=== PATIENT | male | born 1950 | race Caucasian/White ===

== ENCOUNTER → 2020-09-27 15:07 | Outpatient (BNVA) | payer MEDICARE, SELFPAY | PROVIDERS: PCP Internal Medicine; Visit Provider Internal Medicine | DX: R07.2 Precordial pain (principal); I10 Essential (primary) hypertension; E78.5 Hyperlipidemia, unspecified; R94.39 Abnormal result of other cardiovascular function study | CPT/HCPCS: 93005; 99212 ==

== ENCOUNTER 2020-11-03 06:53 | Outpatient (REF) | payer MEDICARE, SELFPAY ==
[2020-11-03 11:08] LABS: MANUAL DIFF FLAG NO
[2020-11-03 11:17] LABS: Basophils Percent Auto 0.7 % (0-2); Eosinophils Absolute Auto 0.1 X10*3/uL (0.0-0.4); Eosinophils Percent Auto 2.1 % (0-4); Hematocrit 42.6 % (42-52); Hemoglobin 14.1 g/dl (14.0-18.0); Imm Gran Abs Auto 0.02 X10*3/uL (0.00-0.03); Imm Gran Pct Auto 0.4 % (0.0-0.4); Lymphocytes Absolute Auto 1.3 X10*3/uL (1.2-4.9); Lymphocytes Percent Auto 23.5 % (20-40); Mean Corpuscular HGB Conc 33.1 g/dl (31.0-36.0); Mean Corpuscular Hemoglobin 30.2 pg (27.0-33.0); Mean Corpuscular Volume 91.2 fL (80-98); Mean Platelet Volume 10.8 fL (9.4-12.4); Monocytes Absolute Auto 0.5 X10*3/uL (0.1-1.2); Monocytes Percent Auto 8.1 % (2-11); Neutrophils Absolute Auto 3.7 X10*3/uL (2.0-8.3); Neutrophils Percent Auto 65.2 % (45-73); Platelet Count 163 X10*3/uL (160-400); Red Blood Count 4.67 X10*6/uL (4.60-5.80); Red Cell Distribution Width 12.7 % (11.0-16.0); White Blood Count 5.7 X10*3/uL (4.8-10.8)
[2020-11-03 11:29] LABS: Glucose Urine UA NEG (NEG); Leukocyte Esterase Urine NEG (NEG); Nitrite Urine NEG (NEG); Urine Blood NEG (NEG); Urine Ketones NEG (NEG); Urine Protein NEG (NEG-TRACE)
[2020-11-03 11:37] LABS: Appearance Urine CLEAR; Color Urine YELLOW
[2020-11-03 11:49] LABS: Alanine Aminotransferase 17 U/L (0-40); Albumin Level 4.2 g/dL (3.5-5.0); Alkaline Phosphatase 51 U/L (39-117); Anion Gap 13 (12-20); Aspartate Amino Transferase 20 U/L (5-37); Bilirubin Total 0.7 mg/dL (0.0-1.0); Blood Urea Nitrogen 16 mg/dL (9-16); Calcium 8.8 mg/dL (8.4-10.2); Carbon Dioxide 25 mmol/L (22-29); Chloride 101 mmol/L (96-108); Cholesterol 151 mg/dL; Estimated Glomerular Filt Rate > 60; Glucose Fasting 85 mg/dL (60-99); HDL Cholesterol 53 mg/dL; LDL Cholesterol Calculated 82 mg/dl; Potassium 3.7 mmol/L (3.3-5.1); Sodium 135 mmol/L (135-145); Total Protein 6.4 g/dL (6.5-8.0); Triglycerides 82 mg/dL
[2020-11-03 11:53] LABS: Prostate Specific Antigen 1.83 ng/mL (<0.05-4.0); Vitamin D 25-OH Total 24.6 ng/mL (>30)
== END 2020-11-03 06:54 | disposition home or self-care (01) ==
LOC: HO.HMGCLDS 06:53
PROVIDERS: PCP Internal Medicine; Visit Provider Internal Medicine
DX: Z12.5 Encounter for screening for malignant neoplasm of prostate (principal); I10 Essential (primary) hypertension; E78.00 Pure hypercholesterolemia, unspecified; E55.9 Vitamin D deficiency, unspecified
CPT/HCPCS: 36415; 80053; 80061; 81003; 82306; 84153; 85025

== ENCOUNTER → 2021-02-08 14:59 | Outpatient (BNVA) | payer MEDICARE, SELFPAY | PROVIDERS: PCP Internal Medicine; Visit Provider Internal Medicine | DX: R07.2 Precordial pain (principal); R94.39 Abnormal result of other cardiovascular function study; I10 Essential (primary) hypertension; E78.5 Hyperlipidemia, unspecified | CPT/HCPCS: 99212 ==

== ENCOUNTER 2021-02-22 10:26 | Outpatient (REF) | payer MEDICARE, SELFPAY ==
--- NOTE | ~2021-02-22 | US_ITS ---
EXAMINATION: US ABDOMEN COMPLETE CLINICAL INFORMATION: Liver lesion, left lobe. COMPARISON: None. TECHNIQUE: Real-time imaging of the abdominal viscera. FINDINGS: PANCREAS: Normal. ABDOMINAL AORTA: The proximal, mid, and distal segments are normal in caliber. INFERIOR VENA CAVA: Visualized portions are normal. LIVER: The liver is normal in size. The liver contour is normal. Parenchymal echogenicity is normal. Multiple hepatic cysts, the largest in the left lobe measuring up to 3.8 x 2.8 x 3.5 cm and the largest in the right lobe measuring up to 1.7 x 2.1 x 2.3 cm. No solid hepatic lesion identified. There is no intrahepatic biliary duct dilatation seen. GALLBLADDER: Normal. The gallbladder is physiologically distended without evidence of stones, sludge, polyps, wall thickening or pericholecystic fluid. COMMON BILE DUCT: Normal in caliber measuring 0.7 cm in diameter. RIGHT KIDNEY: Normal. No hydronephrosis. No renal calculi or focal parenchymal lesions. The kidney measures 10.5 cm in maximum dimension. LEFT KIDNEY: Mild pelvic fullness without significant hydronephrosis. No renal calculi or focal parenchymal lesions. The kidney measures 11.1 cm in maximum dimension. SPLEEN: Normal. The spleen measures 10.0 cm in maximum dimension. FREE FLUID: None. US/US abdomen complete IMPRESSION: 1. Multiple hepatic cysts measuring up to 3.8 cm. No solid hepatic parenchymal lesion or biliary ductal dilatation. 2. Mild left renal pelvic fullness without significant hydronephrosis.
== END 2021-02-22 10:27 | disposition home or self-care (01) ==
LOC: HO.HMGCX 10:26
PROVIDERS: PCP Internal Medicine; Visit Provider Internal Medicine
DX: K76.9 Liver disease, unspecified (principal)
CPT/HCPCS: 76700

== ENCOUNTER 2022-05-11 06:41 | Outpatient (REF) | payer MEDICARE, SELFPAY ==
[2022-05-11 12:05] LABS: Appearance Urine Clear; Basophils Percent Auto 0.6 % (0-2); Color Urine Yellow; Eosinophils Absolute Auto 0.1 X10*3/uL (0.0-0.4); Eosinophils Percent Auto 2.3 % (0-4); Glucose Urine UA Negative (Negative); Hematocrit 43.2 % (42.0-52.0); Hemoglobin 14.4 g/dl (14.0-18.0); Imm Gran Abs Auto 0.02 X10*3/uL (0.00-0.03); Imm Gran Pct Auto 0.4 % (0.0-0.4); Leukocyte Esterase Urine Negative (Negative); Lymphocytes Absolute Auto 1.3 X10*3/uL (1.2-4.9); Lymphocytes Percent Auto 27.7 % (20-40); MANUAL DIFF FLAG NO; Mean Corpuscular HGB Conc 33.3 g/dl (31.0-36.0); Mean Corpuscular Hemoglobin 30.1 pg (27.0-33.0); Mean Corpuscular Volume 90.2 fL (80.0-98.0); Mean Platelet Volume 10.7 fL (9.4-12.4); Monocytes Absolute Auto 0.5 X10*3/uL (0.1-1.2); Monocytes Percent Auto 10.7 % (2-11); Neutrophils Absolute Auto 2.8 x10*3/uL (2.0-8.3); Neutrophils Percent Auto 58.3 % (45-73); Nitrite Urine Negative (Negative); PH 5.5 (5.0-9.0); Platelet Count 170 X10*3/uL (160-400); Red Blood Count 4.79 X10*6/uL (4.60-5.80); Red Cell Distribution Width 12.9 % (11.0-16.0); Urine Blood Negative (Negative); Urine Ketones Negative (Negative); Urine Protein Negative (Neg-Trace); White Blood Count 4.8 X10*3/uL (4.8-10.8)
[2022-05-11 12:11] LABS: Bacteria Urine None Seen (None Seen); Hyaline Casts Urine 0-2 /LPF (0-2); RBC Urine 0-2 /HPF (0-2); Squamous Epithelial Cell Urine 0-2 /HPF (0-2); WBC Urine 0-5 /HPF (0-5)
[2022-05-11 12:39] LABS: Alanine Aminotransferase 19 U/L (0-40); Albumin Level 4.1 g/dL (3.5-5.0); Alkaline Phosphatase 55 U/L (39-117); Anion Gap 12 (12-20); Aspartate Amino Transferase 20 U/L (5-37); Bilirubin Total 0.5 mg/dL (0.0-1.0); Blood Urea Nitrogen 21 mg/dL (9-16); Carbon Dioxide 26 mmol/L (22-29); Chloride 107 mmol/L (96-108); Cholesterol 161 mg/dL; Estimated Glomerular Filt Rate > 60; Glucose Fasting 92 mg/dL (60-99); HDL Cholesterol 52 mg/dL; LDL Cholesterol Calculated 93 mg/dl; Potassium 3.9 mmol/L (3.3-5.1); Sodium 141 mmol/L (135-145); Total Protein 6.1 g/dL (6.5-8.0); Triglycerides 81 mg/dL
[2022-05-11 12:52] LABS: PSA,Total (Free>4and<10) 1.83 ng/mL (0.00-4.00); Thyroid Stimulating Hormone 1.93 uIU/mL (0.32-4.0); Vitamin D 25-OH Total 27.1 ng/mL (>30)
== END 2022-05-11 06:42 | disposition home or self-care (01) ==
LOC: HO.HMGCLDS 06:41
PROVIDERS: PCP Internal Medicine; Visit Provider Internal Medicine
DX: Z12.5 Encounter for screening for malignant neoplasm of prostate (principal); I10 Essential (primary) hypertension; E78.00 Pure hypercholesterolemia, unspecified; E55.9 Vitamin D deficiency, unspecified; K21.9 Gastro-esophageal reflux disease without esophagitis; M48.061 Spinal stenosis, lumbar region without neurogenic claudication
CPT/HCPCS: 36415; 80053; 80061; 81001; 82306; 84153; 84443; 85025

== ENCOUNTER 2023-09-13 07:22 | Outpatient (REF) | payer MEDICARE, SELFPAY ==
[2023-09-13 11:47] LABS: MANUAL DIFF FLAG NO
[2023-09-13 11:59] LABS: Basophils Percent Auto 0.9 % (0-2); Eosinophils Absolute Auto 0.1 X10*3/uL (0.0-0.4); Eosinophils Percent Auto 2.8 % (0-4); Hematocrit 43.6 % (42.0-52.0); Hemoglobin 14.6 g/dl (14.0-18.0); Imm Gran Abs Auto 0.02 X10*3/uL (0.00-0.03); Imm Gran Pct Auto 0.4 % (0.0-0.4); Lymphocytes Absolute Auto 1.4 X10*3/uL (1.2-4.9); Lymphocytes Percent Auto 29.5 % (20-40); Mean Corpuscular HGB Conc 33.5 g/dl (31.0-36.0); Mean Corpuscular Hemoglobin 30.2 pg (27.0-33.0); Mean Corpuscular Volume 90.1 fL (80.0-98.0); Mean Platelet Volume 10.6 fL (9.4-12.4); Monocytes Absolute Auto 0.4 X10*3/uL (0.1-1.2); Monocytes Percent Auto 8.8 % (2-11); Neutrophils Absolute Auto 2.7 x10*3/uL (2.0-8.3); Neutrophils Percent Auto 57.6 % (45-73); Platelet Count 154 X10*3/uL (160-400); Red Blood Count 4.84 X10*6/uL (4.60-5.80); Red Cell Distribution Width 12.8 % (11.0-16.0); White Blood Count 4.6 X10*3/uL (4.8-10.8)
[2023-09-13 12:23] LABS: Alanine Aminotransferase 13 U/L (0-40); Albumin Level 3.9 g/dL (3.5-5.0); Alkaline Phosphatase 56 U/L (39-117); Anion Gap 12 (12-20); Aspartate Amino Transferase 17 U/L (5-37); Bilirubin Total 0.4 mg/dL (0.0-1.0); Blood Urea Nitrogen 17 mg/dL (9-16); Calcium 9.1 mg/dL (8.4-10.2); Carbon Dioxide 27 mmol/L (22-29); Chloride 109 mmol/L (96-108); Cholesterol 150 mg/dL (<200); Estimated Glomerular Filt Rate > 60; Glucose Fasting 95 mg/dL (60-99); HDL Cholesterol 55 mg/dL (>40); LDL Cholesterol Calculated 82 mg/dL (<100); Potassium 3.7 mmol/L (3.3-5.1); Sodium 144 mmol/L (135-145); Total Protein 6.4 g/dL (6.5-8.0); Triglycerides 65 mg/dL (<150)
[2023-09-13 12:26] LABS: PSA,Total (Free>4and<10) 2.04 ng/mL (0.00-4.00)
== END 2023-09-13 07:23 | disposition home or self-care (01) ==
LOC: HO.HMGCLDS 07:22
PROVIDERS: PCP Internal Medicine; Visit Provider Internal Medicine
DX: Z00.00 Encounter for general adult medical examination without abnormal findings (principal); I10 Essential (primary) hypertension; E78.00 Pure hypercholesterolemia, unspecified; E55.9 Vitamin D deficiency, unspecified; M48.061 Spinal stenosis, lumbar region without neurogenic claudication; K21.9 Gastro-esophageal reflux disease without esophagitis; Z12.5 Encounter for screening for malignant neoplasm of prostate
CPT/HCPCS: 36415; 80053; 80061; 84153; 85025

== ENCOUNTER 2024-03-06 07:52 | Day surgery (SDC) | payer MEDICARE, SELFPAY ==
[2024-03-04 14:17] VITALS: BMI 27.0
--- NOTE | 2024-03-05 09:09 | HO.ANESPROP2 ---
Documented by User: Reshma Bazan NP 03/05/24 09:09 HPI - Anesthesia Eval Consult details Narrative: 74yo M for Colonoscopy PMFSH Active Problems Active Problems: All Active Problems Abnormal stress test (Acute) Precordial chest pain (Acute) Other and unspecified hyperlipidemia (Acute) Essential hypertension (Acute) Past Medical History Medical History Spinal stenosis Other and unspecified hyperlipidemia Essential hypertension Family History Family History Father CVD (cardiovascular disease) Mother No problems noted. Surgical History Surgical History Hx of oral surgery Hx of arthroscopy of left knee Hx of tonsillectomy History of corneal transplant H/O colonoscopy Social History Social History Household Members: Spouse Patient Tobacco Use Status: Former Tobacco user Tobacco use type: Cigarette Use of substances other than those prescribed or required for medical reasons: No Are you DNR?: No Advance Directives: No Advance Directives Information Provided: Yes Meds Allergies Allergy/AdvReac Type Severity Reaction Status Date / Time No Known Allergies Allergy Verified 02/08/21 15:22 [No Known Allergies*] Home Medications ?Medication ?Instructions ?Recorded ?Confirmed ?Last Taken ?Type amlodipine 5 mg tablet 5 mg PO DAILY 09/27/20 03/04/24 Unknown History atorvastatin 20 mg tablet 20 mg PO DAILY 09/27/20 03/04/24 Unknown History lisinopril 20 mg tablet 20 mg PO DAILY 09/27/20 03/04/24 03/06/24 History hydrocodone 5 mg-acetaminophen 325 1 tab PO Q4-6H PRN Pain 03/04/24 03/04/24 Unknown History mg tablet omeprazole 20 mg capsule,delayed 20 mg PO QAM 03/04/24 03/04/24 Unknown History release Exam Height,Weight and Vital Signs: Height 5 ft 7.5 in Weight 79.379 kg Assessment and Plan Assessment Anesthesia Assessment: Chart Reviewed Documented by User: Dory Ballesteros MD 03/06/24 09:38 [facility] Past Medical History Medical History Spinal stenosis Other and unspecified hyperlipidemia Essential hypertension Family History Family History Father CVD (cardiovascular disease) Mother No problems noted. Family history of problems with anesthesia: No Surgical History Surgical History Hx of oral surgery Hx of arthroscopy of left knee Hx of tonsillectomy History of corneal transplant H/O colonoscopy History of Problems with Anesthesia: No Social History Social History Household Members: Spouse Patient Tobacco Use Status: Former Tobacco user Tobacco use type: Cigarette Use of substances other than those prescribed or required for medical reasons: No Are you DNR?: No Advance Directives: No Advance Directives Information Provided: Yes Meds Allergies Allergy/AdvReac Type Severity Reaction Status Date / Time No Known Allergies Allergy Verified 02/08/21 15:22 [No Known Allergies*] Home Medications ?Medication ?Instructions ?Recorded ?Confirmed ?Last Taken ?Type amlodipine 5 mg tablet 5 mg PO DAILY 09/27/20 03/04/24 Unknown History atorvastatin 20 mg tablet 20 mg PO DAILY 09/27/20 03/04/24 Unknown History lisinopril 20 mg tablet 20 mg PO DAILY 09/27/20 03/04/24 03/06/24 History hydrocodone 5 mg-acetaminophen 325 1 tab PO Q4-6H PRN Pain 03/04/24 03/04/24 Unknown History mg tablet omeprazole 20 mg capsule,delayed 20 mg PO QAM 03/04/24 03/04/24 Unknown History release Exam Airway Mallampati Class: III TM Dist: <=3cm Neck ROM: Limited Heart: rrr Lungs: cta Assessment and Plan Assessment Anesthesia Assessment: Anesthesia Plan Discussed Final Anesthetic Review Family History of Problems with Anesthesia: No History of Problems with Anesthesia: No NPO: Yes ASA Class: II Final Preanesthetic Review: No Changes in Pt Med Stat, Meds/Allgs Chart Reviewed, Consent Obtained/Reviewed and Anes Risks/Benef Reviewed Patient Risk: Low Procedure Risk: Low Anesthetic Plan Anesthetic Plan: MAC: Disposition: Standard PACU
[2024-03-06 09:03] VITALS: BP 144/79; PULSE 56; RESP 18; TEMP 36.1; O2SAT 98
[2024-03-06] MEDS: Lactated Ringers 1,000 ML 100 ML IVCONT (09:11)
--- NOTE | 2024-03-06 09:20 | MHC.SHP ---
Pre-Procedural Eval Section A - 24 Hr Update-Section A only Date of Service: 03/06/24 Section B - Complete if H&P > 30 days Chief Complaint: Encounter for screening for malignant neoplasm of Details of Present Illness: see H&P no changes Relevant Family History (Specify if Yes): No Relevant Social History: None Present Medications: see Short Stay Collaborative assessment Medical History: No relevant PMH History of Previous Operations: No relevant previous surgery Allergies: Allergies Allergy/AdvReac Type Severity Reaction Status Date / Time No Known Allergies Allergy Verified 02/08/21 15:22 [No Known Allergies*] Review of Systems Sugical H&P ROS: Negative: Constitution, Cardiovascular, Respiratory, Neurological, Psychiatric, Hem-Onc, Allergic/Immunologic, Gastrointestinal, Genitourinary, Musculoskeletal, Integumentary, Endocrine and Eyes/Ears/Nose/Throat Exam Surgical H&P Exam: Normal: HEENT, Normal: Heart, Normal: Lungs, Normal: Extremities, Normal: Abdomen, Normal: Skin and Normal: Neurological Plan Diagnosis/Plan: Unchanged I have reviewed the history and physical and performed a pertinent physical examination on my patient. No changes have occurred unless specified. Time Spent With Patient Time: Total time managing care of this patient today ____ minutes.
[2024-03-06 11:53] VITALS: BP 127/68; PULSE 60; RESP 12; TEMP 36.6; O2SAT 98
[2024-03-06 12:08] VITALS: BP 124/74; PULSE 56; RESP 14; TEMP 36.6; O2SAT 97
[2024-03-06 12:23] VITALS: BP 129/70; PULSE 58; RESP 14; TEMP 36.6; O2SAT 100
--- NOTE | 2024-03-06 12:34 | OP_ITS ---
DATE OF SERVICE: 03/06/2024 SURGEON: Cruz Mcgrath MD INDICATIONS: Colon cancer screening and prior history of adenomatous colon polyps. PREOPERATIVE DIAGNOSIS: POSTOPERATIVE DIAGNOSIS: PROCEDURE PERFORMED: Colonoscopy to the terminal ileum with snare polypectomy and cautery of colon polyps. ESTIMATED BLOOD LOSS: COMPLICATIONS: ANESTHESIA: Monitored anesthesia care. ASSISTANTS: SPECIMENS: DESCRIPTION OF PROCEDURE: A history and physical was performed. The risks and benefits of the procedure were explained to the patient. Informed consent was obtained. The patient was placed in the left lateral decubitus position. A digital rectal exam was performed and was found to be normal. The Olympus pediatric video colonoscope was introduced into the rectum and advanced to the cecum. The cecum was identified by transillumination, palpation, and identification of ileocecal valve. Examination was performed. The scope was removed. He tolerated the procedure well and was returned to the recovery area in stable condition. FINDINGS: The terminal ileum was not examined. The visualized colonic mucosa was normal. The quality of the prep was good. In the cecum, were multiple polyps, 2 measuring approximately 8 mm were removed with a cold snare on the lateral aspect of the cecal wall. Third polyp measuring less than 5 mm was cauterized using the tip of the snare at the base of the cecum. Underneath the ileocecal valve was an approximately 12 to 15 mm polyp, which appeared to arise from the inferior aspect of the ileocecal valve. This was technically difficult to locate and resect. Piecemeal resection was undertaken with a variety of snares, and the base of the remaining polypoid tissue was cauterized. No other polyps were identified. There was moderate sigmoid diverticulosis. Retroflexed examination showed large internal hemorrhoids. The procedure was extended and difficult due to the polyp under the ileocecal valve. IMPRESSION: Colon polyps. RECOMMENDATION: 1. Follow up the biopsy results. 2. Depending on pathology, he may need short-term followup of the large polyp in 6 to 12 months. MD KIARA Benjamin/LATRICEL / [id number]
== END 2024-03-06 12:41 | disposition home or self-care (01) ==
PROVIDERS: PCP Internal Medicine; Visit Provider Internal Medicine Gastroenterology
PROC: 0DJD8ZZ Inspection of Lower Intestinal Tract, Via Natural or Artificial Opening Endoscopic (ICD-10-PCS; CPT 45378; principal; 2024-03-06 10:20)
DX: Z12.11 Encounter for screening for malignant neoplasm of colon (principal); Z86.010 Personal history of colon polyps; D12.0 Benign neoplasm of cecum; I10 Essential (primary) hypertension; K21.9 Gastro-esophageal reflux disease without esophagitis; E78.5 Hyperlipidemia, unspecified; Z79.899 Other long term (current) drug therapy; Z87.891 Personal history of nicotine dependence
CPT/HCPCS: 45385; 88305; J2704

== ENCOUNTER 2024-08-19 15:23 | Outpatient (AMB) | payer MEDICARE, SELFPAY ==
--- OUTSIDE RECORDS SUMMARY | 2024-08-19 15:25 | XMS_ITS ---
Author Organization [facility] Address [address] [place] [address] Care Team Providers Care Electrical Checkout Mechanic Name Role Phone Michael Karel COWAN Primary Care Provider Cruz Mccauley Jr Unavailable REASON FOR VISIT screening PROBLEMS Problem Type ICD Code Onset Dates Problem Status W/U Status Risk SNOMED Code Notes Problem Personal history of colonic polyps (Z86.010) Active confirmed History of polyp of colon (situation) (325092570) Encounters Encounter Location Date Provider Diagnosis [facility] [address] [place] [phone] 03/06/2024 Cruz Mcgrath Jr Colon cancer screening [...] Provider Name:Cruz kelley Jr, 09/04/2024 07:30:00 AM, [address] [place] [address], [phone],
--- OUTSIDE RECORDS SUMMARY | 2024-08-19 15:25 | XMS_ITS ---
Author Organization [facility] Address [address] [place] [id number] Care Team Providers Care Certified Legal Secretary Specialist Name Role Phone Karel Rodriguez DO Primary Care Provider Unavail able Cruz Mcgrath Jr Unavailable [phone] REASON FOR VISIT pathology Encounters Encounter Location Date Provider Diagnosis [facility] [address] [place] [phone] 03/11/2024 Cruz Mcgrath Jr PLAN OF TREATMENT Next Appt Details Provider Name:Cruz kelley Jr, 09/04/2024 07:30:00 AM, [address] [place] [address] , [place], [place], [phone],
--- OUTSIDE RECORDS SUMMARY | 2024-08-19 15:26 | XMS_ITS | Patient Health Record ---
Author Organization [facility] Address [address] [place] [address] Care Team Providers Care Type Inspector Name Role Phone Karel Rodriguez DO Primary Care Provider Unavail able Cruz Mcgrath Jr Unavailable ALLERGIES No Known Allergies RESULTS Component Value Reference Range Notes Pathology Reviewed date:03/11/2024 08:24:35 AM Interpretation: Performing Lab:[facility], [address] [place] [id number] Notes/Report: REASON FOR REFERRAL No Information MEDICATIONS [...] Problem Colon cancer screening (Z12.11) Active confirmed 152061338 Problem Personal history of colonic polyps (Z86.010) Active confirmed History of polyp of colon (situation) (674330765) Problem prison (current) use of non-steroidal anti-inflammatories (NSAID) (Z79.1) Active confirmed 089560728 Problem Encounter for other preprocedural examination (Z01.818) Active confirmed 344844201 Problem Gastroesophageal reflux disease without esophagitis (K21.9) Active confirmed 841366500 Problem Adenomatous polyp of colon, unspecified part of colon (D12.6) Active confirmed 384061904 VITAL SIGNS Temperature 99.3 degrees Fahrenheit 01/29/2024 Blood pressure diastolic 00 mm Hg 07/16/2024 Height 67.5 in 07/16/2024 Blood pressure systolic 00 mm Hg 07/16/2024 Weight 179 lbs 07/16/2024 BMI 27.62 kg/m2 07/16/2024 Encounters Encounter Location Date Provider Diagnosis [facility] Outpatient [address] [place] [id number] 03/06/2024 Cruz Mcgrath Jr Colon cancer screening Z12.11 ; Personal history of colonic polyps Z86.010 and Colon polyps K63.5 [facility] [address] [place] [phone] 01/29/2024 Cruz Mcgrath Jr Colon cancer screening Z12.11 and Gastroesophageal reflux disease without esophagitis K21.9 [facility] [address] [place] [phone] 07/16/2024 Cruz Mcgrath Jr Adenomatous polyp of colon, unspecified part of colon D12.6 and Gastroesophageal reflux disease without esophagitis K21.9 [facility] [address] [place] [phone] 03/11/2024 Cruz Mcgrath Jr ASSESSMENTS Encounter Date [...] Provider Name:Cruz kelley Jr, 09/04/2024 07:30:00 AM, [address] [place] [address] , [place], [place], [phone], Insurance Providers Payer Name Payer Address Payer Phone Subscriber Number Group Number Insured Name Patient Relationship to Insured Coverage Start Date Coverage End Date MEDICARE OF [place] [address] [place] [address] [id number] DANYELL GARRISON Self - patient is the insured MEDEX ATTN CLAIMS [address] [place] [phone] [id number] DANYELL GARRISON Self - patient is the insured MEDICAL (GENERAL) HISTORY Medical History History ICD Code Spinal stenosis Hyperlipidemia Hypertension Colonoscopy 03/04, multiple a denomas, large adenoma under his ileocecal valve, 6-12 months followup Chest pain 07/30, negative nuclear stres s test Surgical History Surgery Date(Month/Year) corneal transplant [id number] tonsillectomy left knee arthroscopy Dental extraction Hospitalization History Reason Date(Month/Year)
--- OUTSIDE RECORDS SUMMARY | 2024-08-19 15:26 | XMS_ITS ---
Author Organization Karel Rodriguez DO, FACP Address [address] [place] [address] [place] [phone] Care Team Providers Care Finance Clerk Name Role Phone Karel Rodriguez Primary Care Provider ALLERGIES No Known Allergies REASON FOR REFERRAL [...] Location Date Provider Diagnosis Karel Rodriguez DO, [address] [id number] 07/07/2024 Karel Rodriguez Essential hypertensi on I10 [...] General Examination GENERAL APPEARANCE: in no ac [place] distress, well developed, well nourished HEAD: normocephalic, atrau matic HEART: no murmurs, regular rate and rhythm, S1, S2 normal LUNGS: clear to auscultatio n bilaterally ABDOMEN: normal, bowel sounds present, soft, nontender, nondistended SKIN: warm and dry EXTREMITIES: no edema PSYCH: alert, oriented, cog nitive function intact Consultation Request Notes Referral Date Referring Provider Referred Provider Not [place] 07/07/2024 Karel Rodriguez Mohammad Fatigue, sleepiness/?KEIRY
--- OUTSIDE RECORDS SUMMARY | 2024-08-19 15:26 | XMS_ITS ---
Author Organization Karel Rodriguez DO [facility] Address [address] [place] [phone] Care Team Providers Care Wringer Operator Name Role Phone Michael Karel Primary Care [...] Location Date Provider Diagnosis Karel Rodriguez DO, [address] [id number] 05/19/2024 Karel Rodriguez Spinal stenosis of lumbar [...]
--- OUTSIDE RECORDS SUMMARY | 2024-08-19 15:26 | XMS_ITS ---
Author Organization Karel Rodriguez DO, FACP Address [address] [place] [address] [place] [phone] Care Team Providers Care Toilet Attendant Name Role Phone Karel Rodriguez Primary Care Provider [phone] REASON FOR VISIT Message MEDICATIONS Medication SIG (Take, Route, Fr equency, Duration) Notes Start Date End Date Status oxyCODONE HCl 5 MG 1 tablet as needed O rally every 6 hrs for 3 days 04/07/2024 Active Encounters Encounter Location Date Provider Diagnosis Karel Rodriguez DO, FACP [address] [place] [phone] 04/07/2024 Karel Rodriguez PLAN OF TREATMENT Medication Medication Name Sig Start Date Stop Date Notes oxyCODONE HCl 5 MG 1 tablet as needed O rally every 6 hrs for 3 days 04/07/2024
--- OUTSIDE RECORDS SUMMARY | 2024-08-19 15:27 | XMS_ITS | Patient Health Record ---
Author Organization Karel Estes Michael DO, FAC Address [address] [place], [place] [address] [phone] Care Team Providers Care Academic Success Coordinator Name Role Phone Karel Rodriguez Primary Care Provider ALLERGIES No Known Allergies RESULTS Component Value Reference Range Notes Complete Blood Count Auto Di ff Reviewed date:09/13/2023 05:50:51 PM Interpretation:Abnormal Performing Lab:[facility], [address] [place] [phone] Notes/Report: White Blood Count 4.6 4.8-10.8 X10*3/uL [...] NRBC Abs Auto 0.000 0.0-0.012 X10*3/uL Comprehensive [place]. Panel Fa Reviewed date:09/13/2023 05:50:12 PM Interpretation:Abnormal Performing Lab:[facility], [address] [place] [phone] Notes/Report: Sodium 144 135-145 mmol/L Potassium 3.7 3.3-5.1 mmol/L Chloride 109 96-108 mmol/L Carbon Dioxide 27 22-29 mmol/L Anion Gap 12 12-20 Blood Urea Nitrogen 17 9-16 mg/dL Creatinine 1.15 0.5-1.4 mg/dL Estimated Glomerular Filt Rate > 60 NOTE: For -Czech individuals, multiply the result by 1.210. Chronic [...] Panel Reviewed date:09/13/2023 05:50:12 PM Interpretation:Normal Performing Lab:[facility], [address] [place] [phone] Notes/Report: Triglycerides 65 <150 mg/dL Desirable Triglyceride: [...] (Free>4and<10) Reviewed date:09/13/2023 05:50:25 PM Interpretation:Normal Performing Lab:[address] [phone] Notes/Report: PSA,Total (Free>4and<10) 2.04 0.00-4.00 ng/mL A [...] Reviewed date:03/10/2024 10:39:53 AM Interpretation:Tubular adenoma Performing Lab:[facility], [address] [place] [phone] Notes/Report: REASON FOR REFERRAL Reason Tubular adenoma F/U Colonoscopy Diagnosis 1 Essential hypertensi on (I10) Referral Organization Karel Escalera FACP Referring Provider First Name Karel Referring Provider Last Name Michael Referring Provider [facility] Referred Provider Cruz Mcgrath Referred Provider Specialty [...] Referring Provider Last Name Michael Referring Provider [facility] Referred Provider Roel Alejandro Referred [...] Problem Vitamin D deficiency (E55.9) Active confirmed 66420980 Problem Essential hypertensi on (I10) Active confirmed 99175782 Problem Gastroesophageal ref lux disease without esophagitis (K21.9) Active confirmed 278751379 Problem Hypercholesterolemia (E78.00) Active confirmed 27437160 Problem Pulmonary nodule (R91.1) Active confirmed 644644679 Problem 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) Active confirmed 44002823 Problem Liver lesion, left l obe (K76.9) Active confirmed 235393387 VITAL SIGNS Blood pressure diastolic 60 mm Hg 07/07/2024 Height 67.50 in 07/07/2024 Blood pressure systolic 124 mm Hg 07/07/2024 Weight 183 lbs 07/07/2024 BMI 28.24 kg/m2 07/07/2024 Encounters Encounter Location Date Provider Diagnosis Karel Rodriguez DO, [facility] [address] [place], [place] [id number] 03/24/2024 Karel Rodriguez DO, [facility] [address] [place], [place] [id number] 08/27/2023 Karel Rodriguez DO, [facility] [address] [place], [place] [id number] 09/25/2023 Karel Rodriguez Essential hypertensi on I10 ; Hypercholesterolemia E78.00 ; Vitamin D deficiency E55.9 ; Gastroesophageal reflux disease without esophagitis K21.9 ; Spinal stenosis of lumbar region without neurogenic claudication M48.061 and Tubular adenoma D36.9 Karel Rodriguez DO, [facility] [address] [place], [place] [id number] 03/31/2024 Karel Rodriguez Essential hypertensi on I10 ; Hypercholesterolemia E78.00 ; Gastroesophageal reflux disease without esophagitis K21.9 ; Vitamin D deficiency E55.9 ; Spinal stenosis of lumbar region without neurogenic claudication M48.061 and Skin lesion of face L98.9 Karel Rodriguez DO, [facility] [address] [place], [place] [id number] 07/07/2024 Karel Rodriguez Essential hypertensi on I10 ; Hypercholesterolemia E78.00 ; Vitamin D deficiency E55.9 ; Gastroesophageal reflux disease without esophagitis K21.9 and Spinal stenosis of lumbar region without neurogenic claudication M48.061 Karel Rodriguez DO, [facility] [address] [place], [place] [id number] 04/07/2024 Karel Rodriguez DO, [facility] [address] [place], [place] [id number] 10/07/2023 Karel Rodriguez Spinal stenosis of l umbar region without neurogenic claudication M48.061 Karel Rodriguez DO, [facility] [address] [place], [place] [id number] 10/23/2023 Karel Rodriguez Spinal stenosis of l umbar region without neurogenic claudication M48.061 Karel Rodriguez DO, [facility] [address] [place], [place] [id number] 01/02/2024 Karel Rodriguez Spinal stenosis of l umbar region without neurogenic claudication M48.061 Karel Rodriguez DO, [facility] [address] [place], [place] [id number] 02/21/2024 Karel Rodriguez Spinal stenosis of l umbar region without neurogenic claudication M48.061 Karel Rodriguez DO, [facility] [address] [place], [place] [id number] 05/19/2024 Karel Rodriguez Spinal stenosis of l [...] sleep study. 07/07/2024 Hypercholesterolemia (ICD-10 - E78.00) 10/07/2023 Spinal stenosis of l umbar region [...] Date MEDICARE [address] [place] [address] [id number] Brian Zacarias Self - patient is the insured MEDEX [address] [place] [address] [id number] Brian Zacarias Self - patient is the [...]
--- NOTE | 2024-08-19 15:41 | MHC.OFFVIS ---
Vital Signs 08/19/24 15:42 Height 5 ft 7.5 in Weight 187 lb BMI 28.9 BP 142/80 H Blood Pressure Location Lt brachial Position Sitting Pulse 61 Pulse Source Pulse Oximeter Pulse Oximetry (%) 96 Oxygen Delivery Method Room Air Intake Visit Reasons: sleep apnea? Intake Note: pt is here as a new patient, he states at times he just feels like he could fall asleep, states he snores. Cancer Registrar Required: No Allergies No Known Allergies [No Known Allergies*] Allergy (Verified 08/19/24 15:57) Medication List - Last Reconciled 08/19/24 by Tamiko Simmons MD amlodipine 5 mg PO DAILY atorvastatin 20 mg PO DAILY hydrocodone-acetaminophen 5-325 mg 1 tab PO Q4-6H PRN lisinopril 20 mg PO DAILY omeprazole 20 mg PO QAM Do you need a note to return to daycare/school/sports/work: No HPI HPI sleep apnea?: Details: 74 YEARS OLD VERY PLEASANT GENTLEMAN A LONG-TIME PATIENT OF DR. ERICKA AYOUB, IS REFERRED TO BE EVALUATED FOR SLEEP APNEA. HE IS GENERALLY IN GOOD HEALTH. BEING TREATED FOR HYPERTENSION AND CHRONIC GERD SYMPTOMS. HE HAS MAINTAINED A STABLE WEIGHT ALL ALONG. 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 FOR ALMOST 50 YEARS, AND ALL THOSE YEARS HIS HAS BEEN TELLING HIM THAT HE SNORES AT NIGHT. HE STATES THAT IS ACTUALLY HIS WHO SNORES, SHE HAS BEEN CHECKED FOR SLEEP APNEA AND ALSO GIVEN IS CPAP DEVICE A FEW YEARS AGO WHICH SHE RETURNED. THE PATIENT IS CONCERNED THAT MORE RECENTLY HE HAS BEEN FEELING DROWSY AT TIMES WHEN HE SHOULD NOT BE. FOR EXAMPLE WHEN HE DRIVES BACK TO HOME AFTER 6 HOURS SHIFT, HE FEELS DROWSY WHILE DRIVING. AT HOME IF HE OPENS UP HIS IPAD HE HAS TENDENCY TO DOZE OFF, SIMILARLY HE CAN NOT WATCH TELEVISION FOR TOO LONG BEFORE HE DOZES OFF. HE WAS SCREENED FOR DAYTIME SLEEPINESS. EPWORTH SLEEPINESS SCALE (ESS) IS 12/24 LATELY HE WAKES 2-3 TIMES PER NIGHT, TO GO TO THE BATHROOM. HE HAS HARD TIME TO GO BACK TO SLEEP AFTER THAT. AND HE WAKES UP UN-REFRESHED. HE HAS NOT GAINED ANY WEIGHT [facility] Medical History (Updated 08/19/24 @ 16:31 by Tamiko Simmons MD) Snoring Somnolence, daytime Retrognathia Spinal stenosis Other and unspecified hyperlipidemia Essential hypertension Surgical History Hx of oral surgery Hx of arthroscopy of left knee Hx of tonsillectomy History of corneal transplant H/O colonoscopy Family History Father CVD (cardiovascular disease) Mother No problems noted. Social History Household Members: Spouse Patient Tobacco Use Status: Former Tobacco user Tobacco use type: Cigarette Review of Systems Const All systems reviewed & are unremarkable except as noted in HPI and below Eyes Reports no additional complaints ENT Reports no additional complaints Card Denies chest pain, Denies syncope, Denies irregular heart rhythm and Denies leg edema Resp Reports as per HPI, Denies cough, Denies hemoptysis and Denies wheezing GI Reports heartburn (HE HAS CHRONIC GERD SYMPTOMS) Reports nocturia Musc Reports no additional complaints Skin/Breast Reports system reviewed and no additional complaints, except as documented Neuro Reports no additional complaints and Denies syncope Psych Reports no additional complaints Endo Reports no additional complaints Lupillo/Lymph Reports no additional complaints Aller/Immun Denies wheezing Physical Exam Vital Signs: Last Vital Signs Pulse 61 08/19/24 15:42 BP 142/80 H 08/19/24 15:42 Pulse Ox 96 08/19/24 15:42 Oxygen Delivery Method Room Air 08/19/24 15:42 BMI result Body Mass Index 28.9 HEALTHY LOOKING SLIGHTLY OVERWEIGHT Const General: healthy appearing, comfortable, no acute distress, alert and awake Orientation/consciousness: patient oriented x3 HEENT Head: Yes normal to inspection General nose exam: No nasal polyps present and No nasal discharge present Face and sinus: Yes sinuses nontender Mouth: oropharynx normal (TONGUE IS PLACED BACK, COMPROMISING TIMBO PHARYNGEAL SPACE MALLAMPATI SCALE 3) Teeth and gingiva: other (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 ) Throat: Yes posterior oropharynx normal Eyes General: appearance normal, both eyes and all related structures Neck Neck: Yes normal visual inspection, Yes no lymphadenopathy, Yes trachea midline, Yes no JVD and Yes other (NECK CIRCUMFERENCE 16-1/2 INCH) Thyroid: Thyroid normal Chest Chest palpation & inspection: normal inspection of the chest, normal palpation of entire chest wall and no tenderness Resp Effort & Inspection: normal respiratory effort Auscultation: clear to auscultation bilaterally, no crackles and no wheezes Cardio Palpation: normal PMI Rate: regular rate Rhythm: regular rhythm Heart sounds: no gallops and no murmurs GI Palpation (GI): Soft to palpation, nontender, No hepatosplenomegaly present and no masses Auscultation: normal bowel sounds Back/Spine/Pelvis Thoracic/Lumbar Spine: thoracic and lumbar spine normal to inspection Skin General skin exam: no rashes or lesions noted Neuro General: patient oriented x3 and no focal motor deficits Cranial nerves: Yes CN's II-XII intact bilaterally Extrem General: Yes normal to inspection, Yes no clubbing, cyanosis or edema and Yes no calf tenderness Psych Appearance: grossly normal and well kempt Speech and movement: Normal speech and movement present Assessment & Plan Assessment & Plan (1) Retrognathia: Comment: 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 Code(s): M26.19 - Other specified anomalies of jaw-cranial base relationship Category: Medical Plan: PATIENT IS AWARE OF THIS LONGSTANDING ABNORMALITY, HE WAS EDUCATED ABOUT THIS BEING A FACTOR FOR OBSTRUCTIVE SLEEP APNEA . (2) Somnolence, daytime: Comment: HIS DAYTIME SLEEPINESS IS GETTING WORSE. ESS= 12/24 Code(s): R40.0 - Somnolence Category: Medical Plan: THIS INDICATES THAT HE HAS INSUFFICIENT SLEEP AT NIGHT MOST LIKELY DUE TO SLEEP APNEA. NEEDS TO HAVE SLEEP STUDY, AGREES TO UNDERGO HOME-BASED SLEEP STUDY. (3) Snoring: Comment: LONGSTANDING HISTORY OF SNORING WHICH IS GETTING SOMEWHAT WORSE Code(s): R06.83 - Snoring Category: Medical Plan: SLEEP STUDY ORDERED Orders: Orders RT home sleep study Today M26.19 - Other specified anomalies of jaw-cranial base relationship, R06.83 - Snoring, R40.0 - Somnolence Coding Level of Care Code New Pt Level 4 (38826) Diagnoses Retrognathia M26.19 Somnolence, daytime R40.0 Snoring R06.83
[2024-08-19 15:42] VITALS: BP 142/80; PULSE 61; O2SAT 96; BMI 28.9
== END 2024-08-19 16:16 | disposition home or self-care (01) ==
PROVIDERS: PCP Internal Medicine; Visit Provider Internal Medicine
DX: M26.19 Other specified anomalies of jaw-cranial base relationship (principal); R40.0 Somnolence; R06.83 Snoring
CPT/HCPCS: 99204

== ENCOUNTER → 2024-08-19 15:23 | Outpatient (BNVA) | payer MEDICARE, SELFPAY | PROVIDERS: PCP Internal Medicine; Visit Provider Internal Medicine | DX: R06.83 Snoring (principal); R40.0 Somnolence; M26.19 Other specified anomalies of jaw-cranial base relationship | CPT/HCPCS: 99202 ==

== ENCOUNTER 2024-09-04 06:19 | Day surgery (SDC) | payer MEDICARE, SELFPAY ==
--- OUTSIDE RECORDS SUMMARY | 2024-07-29 09:46 | XMS_ITS ---
Author Organization [facility] Address [address] [place] [phone] Care Team Providers Care Pig Machine Operator Name Role Phone Karel Rodriguez DO Primary Care Provider Unavail able Cruz Mcgrath Jr Unavailable [phone] REASON FOR VISIT pathology Encounters Encounter Location Date Provider Diagnosis [facility] [address] [place] [phone] 03/11/2024 Cruz Mcgrath Jr PLAN OF TREATMENT Next Appt Details Provider Name:Cruz kelley Jr, 09/04/2024 07:30:00 AM, [address] [place] [address] , [place], [place], [phone],
--- OUTSIDE RECORDS SUMMARY | 2024-07-29 09:46 | XMS_ITS ---
Author Organization [facility] Address [address] [place] [phone] Care Team Providers Care Soiled Linen Distributor Name Role Phone Michael Karel COWAN Primary Care Provider Unavail able Cruz Mcgrath Jr Unavailable ALLERGIES No Known Allergies REASON FOR VISIT Patient presents today for gastroesophageal reflux disease MEDICATIONS Medication SIG (Take, Route, Frequency, Duration) Notes Start Date End Date Status HYDROcodone-Acetaminophen 5-500mg as needed as needed Active diazePAM 5mg as needed Active Atorvastatin Calcium 20 MG 1 tablet Orally Once a day Active amLODIPine Besy-Benazepril HCl 2.5-10 MG as directed Orally Active Lisinopril 20 MG 1 tablet Orally Once a day Active Omeprazole 20 MG 1 capsule 30 minutes before morning meal Orally Once a day for 30 day(s) Active MiraLax (colon prep) 17 GM/SCOOP mixed with Gatorade or Crystal Light Orally begin at 5:00 p.m. the day before the procedure for 1 day 07/16/2024 Active SOCIAL HISTORY Sex Assigned At : Social History Observation Description Sex Assigned At Unknown Alcohol Screen Question Answer Notes Did you have a drink contain ing alcohol in the past year? Yes How often did you have a dri nk containing alcohol in the past year? 2 to 3 times a week (3 points) How many drinks did you have on a typical day when you were drinking in the past year? 1 or 2 drinks (0 point) How often did you have 6 or more drinks on one occasion in the past year? Never (0 point) Points 3 Interpretation Negative PROBLEMS Problem Type ICD Code Onset Dates Problem Status W/U Status Risk SNOMED Code Notes Problem Adenomatous polyp of colon, unspecified part of colon (D12.6) Active confirmed 488801353 VITAL SIGNS BMI 27.62 kg/m2 07/16/2024 Blood pressure systolic 00 mm Hg 07/16/20 24 Blood pressure diastolic 00 mm Hg 024 Height 67.5 in 07/16/2024 Weight 179 lbs 07/16/2024 Encounters Encounter Location Date Provider Diagnosis [facility] [address] [place] [address] 07/16/2024 Cruz Mcgrath Jr Adenomatous polyp of colon, unspecified part of colon D12.6 and Gastroesophageal reflux disease without esophagitis K21.9 ASSESSMENTS Encounter Date Diagnosis Assessment Notes Treatment Notes Treatment Clinical Notes 07/16/2024 Adenomatous polyp of colon, unspecified part of colon (ICD-10 - D12.6) 07/16/2024 Gastroesophageal ref lux disease without esophagitis (ICD-10 - K21.9) PLAN OF TREATMENT Medication Medication Name Sig Start Date Stop Date Notes MiraLax (colon prep) 17 GM/SCOOP mixed with Gatorade or Crystal Light Orally begin at 5:00 p.m. the day before the procedure for 1 day 07/16/2024 Future Test Test Name Order Date COLONOSCOPY 07/16/2024 Next Appt Details Follow Up: 1 Year, Reason: Provider Name:Cruz kelley Jr, 09/04/2024 07:30:00 AM, [address] [place] [address] , [place], [place], [phone],
--- OUTSIDE RECORDS SUMMARY | 2024-07-29 09:46 | XMS_ITS ---
Author Organization [facility] Address [address] [place] [address] Care Team Providers Care Filament Coil Winder Name Role Phone Michael Karel COWAN Primary Care Provider Cruz Mccauley Jr Unavailable [phone] REASON FOR VISIT screening PROBLEMS Problem Type ICD Code Onset Dates Problem Status W/U Status Risk SNOMED Code Notes Problem Personal history of colonic polyps (Z86.010) Active confirmed History of polyp of colon (situation) (510728539) Encounters Encounter Location Date Provider Diagnosis [facility] [place] [address] [place] [phone] 03/06/2024 Cruz Mcgrath Jr Colon cancer screening Z12.11 ; Personal history of colonic polyps Z86.010 and Colon polyps K63.5 ASSESSMENTS Encounter Date Diagnosis Assessment Notes Treatment Notes Treatment Clinical Notes 03/06/2024 Colon cancer screening (ICD-10 - Z12.11) 03/06/2024 Personal history of colonic polyps (ICD-10 - Z86.010) 03/06/2024 Colon polyps (ICD-10 - K63.5) PLAN OF TREATMENT Next Appt Details Provider Name:Cruz kelley Jr, 09/04/2024 07:30:00 AM, [address] [place] [address], [phone],
--- OUTSIDE RECORDS SUMMARY | 2024-07-29 09:46 | XMS_ITS | Patient Health Record ---
Author Organization [facility] Address [address] [place] [address] Care Team Providers Care Snap Shearer Name Role Phone Karel Rodriguez DO Primary Care Provider Unavail able Cruz Mcgrath Jr Unavailable ALLERGIES No Known Allergies RESULTS Component Value Reference Range Notes Pathology Reviewed date:03/11/2024 08:24:35 AM Interpretation: Performing Lab:[facility], [address] [place] [phone] Notes/Report: REASON FOR REFERRAL No Information MEDICATIONS Medication SIG (Take, Route, Frequency, Duration) Notes Start Date End Date Status HYDROcodone-Acetaminophen 5-500mg as needed as needed Active diazePAM 5mg as needed Active Atorvastatin Calcium 20 MG 1 tablet Orally Once a day Active Omeprazole 20 MG 1 capsule 30 minutes before morning meal Orally Once a day for 30 day(s) Active amLODIPine Besy-Benazepril HCl 2.5-10 MG as directed Orally Active Lisinopril 20 MG 1 tablet Orally Once a day Active MiraLax (colon prep) 17 GM/SCOOP mixed with Gatorade or Crystal Light Orally begin at 5:00 p.m. 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) use of non-steroidal anti-inflammatories (NSAID) (Z79.1) Active confirmed 624766284 Problem Encounter for other preprocedural examination (Z01.818) Active confirmed 392533815 Problem Gastroesophageal reflux disease without esophagitis (K21.9) Active confirmed 565481462 Problem Adenomatous polyp of colon, unspecified part of colon (D12.6) Active confirmed 749362993 VITAL SIGNS Temperature 99.3 degrees Fahrenheit 01/29/2024 Blood pressure diastolic 00 mm Hg 07/16/2024 Height 67.5 in 07/16/2024 Blood pressure systolic 00 mm Hg 07/16/2024 Weight 179 lbs 07/16/2024 BMI 27.62 kg/m2 07/16/2024 Encounters Encounter Location Date Provider Diagnosis [facility] [place] [address] [place] [phone] 03/06/2024 Cruz Mcgrath Jr Colon cancer screening Z12.11 ; Personal history of colonic polyps Z86.010 and Colon polyps K63.5 [facility] [address] [place] [phone] 01/29/2024 Cruz Mcgrath Jr Colon cancer screening Z12.11 and Gastroesophageal reflux disease without esophagitis K21.9 [facility] [address] [place] [phone] 07/16/2024 Cruz Mcgrath Jr Adenomatous polyp of colon, unspecified part of colon D12.6 and Gastroesophageal reflux disease without esophagitis K21.9 [facility] [address] [place] [phone] 03/11/2024 Cruz Mcgrath Jr ASSESSMENTS Encounter Date Diagnosis Assessment Notes Treatment Notes Treatment Clinical Notes 03/06/2024 Colon cancer screeni ng (ICD-10 - Z12.11) 03/06/2024 Personal history of colonic polyps (ICD-10 - Z86.010) 01/29/2024 Colon cancer screeni ng (ICD-10 - Z12.11) 01/29/2024 Gastroesophageal ref lux disease without esophagitis (ICD-10 - K21.9) 07/16/2024 Gastroesophageal ref lux disease without esophagitis (ICD-10 - K21.9) 07/16/2024 Adenomatous polyp of colon, unspecified part of colon (ICD-10 - D12.6) 03/06/2024 Colon polyps (ICD-10 - K63.5) PLAN OF TREATMENT Future Test Test Name Order Date COLONOSCOPY 07/03/2013 COLONOSCOPY 10/23/2018 COLONOSCOPY 01/29/2024 COLONOSCOPY 07/16/2024 Next Appt Details Provider Name:Cruz kelley Jr, 09/04/2024 07:30:00 AM, [address] [place] [address] , [place], [place], [phone], Insurance Providers Payer Name Payer Address Payer Phone Subscriber Number Group Number Insured Name Patient Relationship to Insured Coverage Start Date Coverage End Date MEDICARE OF [place] [address] [place] [address] [phone] [id number] DANYELL GARRISON Self - patient is the insured [employer] ATT[employer] CLAIMS [address] [place] [address] [phone] [id number] DANYELL GARRISON Self - patient is the insured MEDICAL (GENERAL) HISTORY Medical History History ICD Code Spinal stenosis Hyperlipidemia Hypertension Colonoscopy 03/04, multiple a denomas, large adenoma under his ileocecal valve, 6-12 months followup Chest pain 07/30, negative nuclear stres s test Surgical History Surgery Date(Month/Year) corneal transplant [id number] tonsillectomy left knee arthroscopy Dental extraction Hospitalization History Reason Date(Month/Year)
--- OUTSIDE RECORDS SUMMARY | 2024-07-29 09:47 | XMS_ITS ---
Author Organization Karel Rodriguez DO [facility] Address [address] [place] [phone] Care Team Providers Care Dropper Tank Storage Name Role Phone Michael Karel Primary Care Provider REASON FOR VISIT New Refill Request MEDICATIONS Medication SIG (Take, Route, Fr equency, Duration) Notes Start Date End Date Status diazePAM 5 MG 1 tablet at night as needed Orally Once every other day for 30 days 05/20/2024 Active Diprolene AF 0.05 % 1 application to aff ected area as needed Externally Twice a day for 30 days Active Encounters Encounter Location Date Provider Diagnosis Karel Rodriguez DO, [address] [phone] 05/19/2024 Karel Rodriguez Spinal stenosis 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
--- OUTSIDE RECORDS SUMMARY | 2024-07-29 09:47 | XMS_ITS ---
Author Organization Karel Rodriguez DO, FACP Address [address] [place] [address] [place] [phone] Care Team Providers Care Cushion Gum Applicator Name Role Phone Karel Rodriguez Primary Care Provider [phone] REASON FOR VISIT Message MEDICATIONS Medication SIG (Take, Route, Fr equency, Duration) Notes Start Date End Date Status oxyCODONE HCl 5 MG 1 tablet as needed O rally every 6 hrs for 3 days 04/07/2024 Active Encounters Encounter Location Date Provider Diagnosis Karel Rodriguez DO, FACP [address] [place] [phone] 04/07/2024 Karel Rodriguez PLAN OF TREATMENT Medication Medication Name Sig Start Date Stop Date Notes oxyCODONE HCl 5 MG 1 tablet as needed O rally every 6 hrs for 3 days 04/07/2024
--- OUTSIDE RECORDS SUMMARY | 2024-07-29 09:47 | XMS_ITS ---
Author Organization Karel Rodriguez DO, FACP Address [address] [place] [address] [place] [id number] Care Team Providers Care Obstetrical Nurse Name Role Phone Karel Rodriguez Primary Care Provider [phone] ALLERGIES No Known Allergies REASON FOR REFERRAL Reason Fatigue, sleepiness/ ?KEIRY Diagnosis 1 Essential hypertensi on (I10) Referral Organization Karel Mckinney O, FACP Referring Provider First Name Karel Referring Provider Last Name Michael Referring Provider Speciality Internal M edicine Referred Provider Tamiko Simmons Referred Provider Specialty Pulmonary Di seases General Notes Patricia Hightower 4 03:37:01 PM EST > Referral and notes faxed prior to scheduling Referral Priority Routine Referral Appointment Date 08/19/2024 REASON FOR VISIT 3 month f/u, Follow up hypertension MEDICATIONS Medication SIG (Take, Route, Frequency, Duration) Notes Start Date End Date Status Lisinopril 20 MG 1 tablet Orally Once a day Active amLODIPine Besylate 5 MG 1 tablet Orally Once a day for 30 day(s) 07/07/2024 Active HYDROcodone-Acetaminop hen 5-325 MG 1 tablet as needed Orally every 6 hrs for 3 days No substitution 07/07/2024 Active diazePAM 5 MG 1 tablet at night as needed Orally Once every other day for 30 days 05/20/2024 Active Diprolene AF 0.05 % 1 application to affected area as needed Externally Twice a day Active Atorvastatin Calcium 20 MG 1 tablet Orally Once a day Active Sildenafil Citrate 50 MG 1 tablet as needed Orally Once a day Active Omeprazole 20 MG 1 capsule 30 minutes before morning meal Orally Once a day Active amLODIPine Besylate 5 MG 1 tablet Orally Once a day for 90 days Active Vitamin D-3 1000 UNIT 1 capsule Orally Once a day Active SOCIAL HISTORY Tobacco Use: Social History Observation Description Date Details (start date - stop date) Former Smoker NA - NA Sex Assigned At : Social History Observation Description Sex Assigned At Unknown Tobacco Use/Smoking Question Answer Notes Patient is a former smoker How long has it been since y ou last smoked? > 10 years Additional Findings: Tobacco Non-User Fo rmer smoker, currently using no form of tobacco Alcohol Screen Question Answer Notes Did you have a drink contain ing alcohol in the past year? Yes How often did you have a dri nk containing alcohol in the past year? 2 to 4 times a month (2 points) How many drinks did you have on a typical day when you were drinking in the past year? 1 or 2 drinks (0 point) How often did you have 6 or more drinks on one occasion in the past year? Never (0 point) Points 2 Interpretation Negative VITAL SIGNS BMI 28.24 kg/m2 07/07/2024 Blood pressure systolic 124 mm Hg 07/07/20 24 Blood pressure diastolic 60 mm Hg 024 Height 67.50 in 07/07/2024 Weight 183 lbs 07/07/2024 Encounters Encounter Location Date Provider Diagnosis Karel Rodriguez DO, [address] [phone] 07/07/2024 Karel Rodriguez Essential hypertensi on I10 ; Hypercholesterolemia E78.00 ; Vitamin D deficiency E55.9 ; Gastroesophageal reflux disease without esophagitis K21.9 and Spinal stenosis of lumbar region without neurogenic claudication M48.061 ASSESSMENTS Encounter Date Diagnosis Assessment Notes Treatment Notes Treatment Clinical Notes 07/07/2024 Essential hypertensi on (ICD-10 - I10) BP is better controlled. Salt intake has lessened. Has fatigue. Falls asleep during the day. Will refer for a sleep study. 07/07/2024 Hypercholesterolemia (ICD-10 - E78.00) 07/07/2024 Vitamin D deficiency (ICD-10 - E55.9) 07/07/2024 Gastroesophageal ref lux disease without esophagitis (ICD-10 - K21.9) 07/07/2024 Spinal stenosis of l umbar region without neurogenic claudication (ICD-10 - M48.061) PLAN OF TREATMENT Medication Medication Name Sig Start Date Stop Date Notes Lisinopril 20 MG 1 tablet Orally Once a day amLODIPine Besylate 5 MG 1 tablet Orally Once a day for 30 day(s) 07/07/2024 HYDROcodone-Acetaminophen 5-325 MG 1 tablet as needed Orally every 6 hrs for 3 days 07/07/2024 No substitution diazePAM 5 MG 1 tablet at night as needed Orally Once every other day for 30 days 05/20/2024 Diprolene AF 0.05 % 1 application to affected area as needed Externally Twice a day Atorvastatin Calcium 20 MG 1 tablet Orally Once a day Sildenafil Citrate 50 MG 1 tablet as nee ded Orally Once a day Omeprazole 20 MG 1 capsule 30 minutes before morning meal Orally Once a day Vitamin D-3 1000 UNIT 1 capsule Orally O nce a day Treatment Notes Assessment Notes Essential hypertension BP is better cont rolled. Salt intake has lessened. Has fatigue. Falls asleep during the day. Will refer for a sleep study. Referrals Referral Date Details 08/19/2024 08/19/2024, Fatigue, sleepiness/?KEIRYTamiko Next Appt Details Follow Up: 3 Months, Reason: follow up visit Progress Notes * Examination Category Sub-Category Detail Notes General Examination GENERAL APPEARANCE: in no ac [place] distress, well developed, well nourished HEAD: normocephalic, atrau matic HEART: no murmurs, regular rate and rhythm, S1, S2 normal LUNGS: clear to auscultatio n bilaterally ABDOMEN: normal, bowel sounds present, soft, nontender, nondistended SKIN: warm and dry EXTREMITIES: no edema PSYCH: alert, oriented, cog nitive function intact Consultation Request Notes Referral Date Referring Provider Referred Provider Not [place] 07/07/2024 Karel Rodrgiuez Mohammad Fatigue, sleepiness/?KEIRY
--- OUTSIDE RECORDS SUMMARY | 2024-07-29 09:47 | XMS_ITS | Patient Health Record ---
Author Organization Karel Estes Michael DO, FAC Address [address] [place], [place] [address] [id number] Care Team Providers Care Sugar Grinder Name Role Phone Karel Rodriguez Primary Care Provider [phone] ALLERGIES No Known Allergies RESULTS Component Value Reference Range Notes Complete Blood Count Auto Di ff Reviewed date:09/13/2023 05:50:51 PM Interpretation:Abnormal Performing Lab:[facility], [address] [place] [phone] Notes/Report: White Blood Count 4.6 4.8-10.8 X10*3/uL Red Blood Count 4.84 4.60-5.80 X10*6/uL Hemoglobin 14.6 14.0-18.0 g/dl Hematocrit 43.6 42.0-52.0 % Mean Corpuscular Volume 90.1 80.0-98.0 fL Mean Corpuscular Hemoglobin 30.2 27.0-33.0 pg Mean Corpuscular HGB Conc 33.5 31.0-36.0 g/dl Red Cell Distribution Width 12.8 11.0-16.0 % Platelet Count 154 160-400 X10*3/uL Mean Platelet Volume 10.6 9.4-12.4 fL Neutrophils Percent Auto 57.6 45-73 % Imm Gran Pct Auto 0.4 0.0-0.4 % Lymphocytes Percent Auto 29.5 20-40 % Monocytes Percent Auto 8.8 2-11 % Eosinophils Percent Auto 2.8 0-4 % Basophils Percent Auto 0.9 0-2 % NRBC Pct Auto 0.0 0.0-0.2 /100WBC Neutrophils Absolute Auto 2.7 2.0-8.3 x10*3/u L Imm Gran Abs Auto 0.02 0.00-0.03 X10*3/uL Lymphocytes Absolute Auto 1.4 1.2-4.9 X10*3/u L Monocytes Absolute Auto 0.4 0.1-1.2 X10*3/uL Eosinophils Absolute Auto 0.1 0.0-0.4 X10*3/u L Basophils Absolute Auto 0.0 0.0-0.2 X10*3/uL NRBC Abs Auto 0.000 0.0-0.012 X10*3/uL Comprehensive [place]. Panel Fa Reviewed date:09/13/2023 05:50:12 PM Interpretation:Abnormal Performing Lab:[facility], [address] [place] [phone] Notes/Report: Sodium 144 135-145 mmol/L Potassium 3.7 3.3-5.1 mmol/L Chloride 109 96-108 mmol/L Carbon Dioxide 27 22-29 mmol/L Anion Gap 12 12-20 Blood Urea Nitrogen 17 9-16 mg/dL Creatinine 1.15 0.5-1.4 mg/dL Estimated Glomerular Filt Rate > 60 NOTE: For -[place]cuad[place] individuals, multiply the result by 1.210. Chronic Kidney Disease: Estimated GFR < 60 mL/min/1.73m2 Severe Kidney Disease: Estimated GFR < 15 mL/min/1.73m2 Glucose Fasting 95 60-99 mg/dL Calcium 9.1 8.4-10.2 mg/dL Bilirubin Total 0.4 0.0-1.0 mg/dL Aspartate Amino Transferase 17 5-37 U/L Alanine Aminotransferase 13 0-40 U/L Total Protein 6.4 6.5-8.0 g/dL Albumin Level 3.9 3.5-5.0 g/dL Alkaline Phosphatase 56 39-117 U/L Lipid Panel Reviewed date:09/13/2023 05:50:12 PM Interpretation:Normal Performing Lab:[facility], [address] [place] [phone] Notes/Report: Triglycerides 65 <150 mg/dL Desirable Triglyceride: less than 150 mg/dL Borderline High Triglyceride 150-199 mg/dL High Triglyceride: 200-499 mg/dL Very High Triglyceride: greater than or equal to 5OO mg/dL Cholesterol 150 <200 mg/dL Desirable Cholesterol: less than 200 mg/dL Borderline High Cholesterol: 200-239 mg/dL High Cholesterol: greater than 239 mg/dL LDL Cholesterol Calculated 82 <100 mg/dL Desirable LDL: less than 100 mg/dL Near Optimal/Above Optimal LDL: 110-129 mg/dL Borderline High LDL: 130-159 mg/dL High LDL: 160-189 mg/dL Very High LDL: greater than or equal to 190 mg/dL HDL Cholesterol 55 >40 mg/dL Desirable HDL: greater than 40 mg/dL Note: This HDL assay may give artificially low results in patients with liver disease. PSA,Total (Free>4and<10) Reviewed date:09/13/2023 05:50:25 PM Interpretation:Normal Performing Lab:[address] [phone] Notes/Report: PSA,Total (Free>4and<10) 2.04 0.00-4.00 ng/mL A Free PSA was not performed: The percentage of Free PSA can be used to enhance the differentiation of prostate cancer from benign prostatic disease in subjects whose PSA levels are between 4.0 and 10.0 ng/mL. For subjects whose PSA levels are below 4.0 or above 10.0 ng/mL, the risk of prostate cancer is determined on the basis of the PSA alone. Therefore the % Free PSA is recommended only for those subjects whose PSA levels are between 4.0 and 10.0 ng/mL. PSA methodology: Devine Alinity i Chemiluminescent Microparticle Immunoassay (CMIA) Pathology Reviewed date:03/10/2024 10:39:53 AM Interpretation:Tubular adenoma Performing Lab:[facility], [address] [place] [phone] Notes/Report: REASON FOR REFERRAL Reason Tubular adenoma F/U Colonoscopy Diagnosis 1 Essential hypertensi on (I10) Referral Organization Karel Escalera FACP Referring Provider First Name Karel Referring Provider Last Name Michael Referring Provider [facility] Referred Provider Cruz Mcgrath Referred Provider Specialty Gastroentero logy Referral Priority Routine Referral Appointment Date 01/29/2024 Reason Skin lesion of face Diagnosis 1 Skin lesion of face (L98.9) Referral Organization Karel Escalera FACP Referring Provider First Name Karel Referring Provider Last Name Michael Referring Provider Speciality Internal edicine Referred Provider Luisa Fernandes Referred Provider Specialty Dermatology General Notes Milagros Serna 024 11:47:43 AM EDT > referral faxed; specialist will call patient; patient aware. Referral Priority Routine Reason Fatigue, sleepiness/ ?KEIRY Diagnosis 1 Essential hypertensi on (I10) Referral Organization Karel Escalera FACP Referring Provider First Name Karel Referring Provider Last Name Michael Referring Provider Speciality Internal edicine Referred Provider Tamiko Simmons Referred Provider Specialty Pulmonary Di seases General Notes Page,Patricia 4 03:37:01 PM EST > Referral and notes faxed prior to scheduling Referral Priority Routine Referral Appointment Date 08/19/2024 Reason Skin Lesion on face Diagnosis 1 Skin lesion of face (L98.9) Referral Organization Karel Escalera FACP Referring Provider First Name Karel Referring Provider Last Name Michael Ref[facility] Referred Provider Roel Alejandro Referred Provider Specialty Dermatology General Notes Page,Patricia 4 03:47:26 PM EST > Referral faxed prior to scheduling Referral Priority Routine MEDICATIONS Medication SIG (Take, Route, Frequency, Duration) Notes Start Date End Date Status Lisinopril 20 MG 1 tablet Orally Once a day Active amLODIPine Besylate 5 MG 1 tablet Orally Once a day for 30 day(s) 07/07/2024 Active HYDROcodone-Acetaminop hen 5-325 MG 1 tablet as needed Orally every 6 hrs for 3 days No substitution 07/07/2024 Active Atorvastatin Calcium 20 MG 1 tablet Orally Once a day Active diazePAM 5 MG 1 tablet at night as needed Orally Once every other day for 30 days 05/20/2024 Active Diprolene AF 0.05 % 1 application to affected area as needed Externally Twice a day Active Sildenafil Citrate 50 MG 1 tablet as needed Orally Once a day Active Omeprazole 20 MG 1 capsule 30 minutes before morning meal Orally Once a day Active amLODIPine Besylate 5 MG 1 tablet Orally Once a day for 90 days Active Vitamin D-3 1000 UNIT 1 capsule Orally Once a day Active IMMUNIZATIONS Vaccine Route Administration Date Status Comme nts Influenza IM Intramuscular 04/29/2012 Administered Td (adult) IM Intramuscular 02/25/2013 Administered Influenza IM Intramuscular 05/01/2013 Administered Influenza IM Intramuscular 05/04/2014 Administered Influenza Quad IM Intramuscular 05/13/2015 Administered Influenza Quad IM Intramuscular 05/11/2016 Administered Influenza Quad IM Intramuscular 04/26/2017 Administered Influenza High Dose IM Intramuscular 05/09/2018 Administer ed Influenza Quad IM Intramuscular 04/29/2019 Administered Zoster Vaccine Unknown 07/21/2016 Administered Shingrix Unknown 03/28/2019 Administered COVID-19 Moderna Vaccine Unknown 11/10/2020 Administere d COVID-19 Moderna Vaccine Unknown 10/13/2020 Administere d PPSV23 Unknown 07/29/2019 Administered Shingrix Unknown 01/03/2019 Administered Influnza High Dose Quad Unknown 05/21/2021 Administered COVID-19 Moderna Vaccine Unknown 06/26/2021 Administere d COVID-19 Moderna Bivalent Unknown 05/18/2022 Administer ed Influnza High Dose Quad Unknown 05/18/2022 Administered Influenza High Dose Unknown 05/15/2024 Administered SOCIAL HISTORY Tobacco Use: Social History Observation [...] Never (0 point) Points 2 Interpretation Negative PROBLEMS Problem Type ICD Code Onset Dates Problem Status W/U Status Risk SNOMED Code Notes Problem Vitamin D deficiency (E55.9) Active confirmed 46353354 Problem Essential hypertensi on (I10) Active confirmed 48654454 Problem Gastroesophageal ref lux disease without esophagitis (K21.9) Active confirmed 945232774 Problem Hypercholesterolemia (E78.00) Active confirmed 24983403 Problem Pulmonary nodule (R91.1) Active confirmed 572649183 Problem 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) Active confirmed 73243747 Problem Liver lesion, left l obe (K76.9) Active confirmed 012477863 VITAL SIGNS Blood pressure diastolic 60 mm Hg 07/07/2024 Height 67.50 in 07/07/2024 Blood pressure systolic 124 mm Hg 07/07/2024 Weight 183 lbs 07/07/2024 BMI 28.24 kg/m2 07/07/2024 Encounters Encounter Location Date Provider Diagnosis Karel Rodriguez DO, [facility] [address] [place], [place] [id number] 03/24/2024 Karel Rodriguez DO, [facility] [address] [place], [place] [id number] 08/27/2023 Karel Rodriguez DO, [facility] [address] [place], [place] [id number] 09/25/2023 Karel Rodriguez Essential hypertensi on I10 ; Hypercholesterolemia E78.00 ; Vitamin D deficiency E55.9 ; Gastroesophageal reflux disease without esophagitis K21.9 ; Spinal stenosis of lumbar region without neurogenic claudication M48.061 and Tubular adenoma D36.9 Karel Rodriguez DO, [facility] [address] [place], [place] [id number] 03/31/2024 Karel Rodriguez Essential hypertensi on I10 ; Hypercholesterolemia E78.00 ; Gastroesophageal reflux disease without esophagitis K21.9 ; Vitamin D deficiency E55.9 ; Spinal stenosis of lumbar region without neurogenic claudication M48.061 and Skin lesion of face L98.9 Karel Rodriguez DO, [facility] [address] [place], [place] [id number] 07/07/2024 Karel Rodriguez Essential hypertensi on I10 ; Hypercholesterolemia E78.00 ; Vitamin D deficiency E55.9 ; Gastroesophageal reflux disease without esophagitis K21.9 and Spinal stenosis of lumbar region without neurogenic claudication M48.061 Karel Rodriguez DO, [facility] [address] [place], [place] [id number] 04/07/2024 Karel Rodriguez DO, [facility] [address] [place], [place] [id number] 07/29/2023 Karel Rodriguez Spinal stenosis of l umbar region without neurogenic claudication M48.061 Karel Rodriguez DO, [facility] [address] [place], [place] [id number] 10/07/2023 Karel Rodriguez Spinal stenosis of l umbar region without neurogenic claudication M48.061 Karel Rodriguez DO, [facility] [address] [place], [place] [id number] 10/23/2023 Karel Rodriguez Spinal stenosis of l umbar region without neurogenic claudication M48.061 Karel Rodriguez DO, [facility] [address] [place], [place] [id number] 01/02/2024 Karel Rodriguez Spinal stenosis of l umbar region without neurogenic claudication M48.061 Karel Rodriguez DO, [facility] [address] [place], [place] [id number] 02/21/2024 Karel Rodriguez Spinal stenosis of l umbar region without neurogenic claudication M48.061 Karel Rodriguez DO, [facility] [address] [place], [place] [id number] 05/19/2024 Karel Rodriguez Spinal stenosis of l umbar region without neurogenic claudication M48.061 ASSESSMENTS Encounter Date Diagnosis Assessment Notes Treatment Notes Treatment Clinical Notes 09/25/2023 Essential hypertensi on (ICD-10 - I10) 09/25/2023 Hypercholesterolemia (ICD-10 - E78.00) 03/31/2024 Essential hypertensi on (ICD-10 - I10) Low salt diet 03/31/2024 Hypercholesterolemia (ICD-10 - E78.00) 07/07/2024 Essential hypertensi on (ICD-10 - I10) BP is better controlled. Salt intake has lessened. Has fatigue. Falls asleep during the day. Will refer for a sleep study. 07/07/2024 Hypercholesterolemia (ICD-10 - E78.00) 07/29/2023 Spinal stenosis of l umbar region without neurogenic claudication (ICD-10 - M48.061) 10/07/2023 Spinal stenosis of l umbar region without neurogenic claudication (ICD-10 - M48.061) 10/23/2023 Spinal stenosis of l umbar region without neurogenic claudication (ICD-10 - M48.061) 01/02/2024 Spinal stenosis of l umbar region without neurogenic claudication (ICD-10 - M48.061) 02/21/2024 Spinal stenosis of l umbar region without neurogenic claudication (ICD-10 - M48.061) 05/19/2024 Spinal stenosis of l umbar region without neurogenic claudication (ICD-10 - M48.061) 09/25/2023 Vitamin D deficiency (ICD-10 - E55.9) 03/31/2024 Gastroesophageal ref lux disease without esophagitis (ICD-10 - K21.9) 07/07/2024 Vitamin D deficiency (ICD-10 - E55.9) 09/25/2023 Gastroesophageal ref lux disease without esophagitis (ICD-10 - K21.9) 03/31/2024 Vitamin D deficiency (ICD-10 - E55.9) 07/07/2024 Gastroesophageal ref lux disease without esophagitis (ICD-10 - K21.9) 09/25/2023 Spinal stenosis of l umbar region without neurogenic claudication (ICD-10 - M48.061) 03/31/2024 Spinal stenosis of l umbar region without neurogenic claudication (ICD-10 - M48.061) 07/07/2024 Spinal stenosis of l umbar region without neurogenic claudication (ICD-10 - M48.061) 09/25/2023 Tubular adenoma (ICD -10 - D36.9) Refer to GI for F/U Colonoscopy 03/31/2024 Skin lesion of face (ICD-10 - L98.9) PLAN OF TREATMENT No Information Insurance Providers Payer Name Payer Address Payer Phone Subscriber Number Group Number Insured Name Patient Relationship to Insured Coverage Start Date Coverage End Date MEDICARE [address] [place] [phone] [id number] Brian Zacarias Self - patient is the insured MEDEX [address] [place] [address] [phone] [id number] Brian Zacarias Self - patient is the insured MEDICAL (GENERAL) HISTORY Medical History History ICD Code hypertension hypercholesterolemia IRBBB spinal stenosis osteoarthritis herniated lumbar disc low back pain dermatitis urticaria eczema psoriasis hearing loss, high frequency sensorineur al cataracts Varicella Vitamin D deficiency E55.9 Surgical History Surgery Date(Month/Year) tonsillectomy and adenoidectomy left knee arthroscopy cataract-lens implant OD corneal transplant OU
[2024-09-02 12:23] VITALS: BMI 27.6
--- NOTE | 2024-09-03 09:11 | P.CONAN_ITS ---
Documented by User: Reshma Bazan NP 09/03/24 09:19 HPI - Anesthesia Eval Consult details Narrative: 74yo M for Colonoscopy s/p colo 02/2024 with MAC COUNTS INCLUDE [facility] BEDS AT [facility] Active Problems Active Problems: All Active Problems Abnormal stress test (Acute) Precordial chest pain (Acute) Snoring (Acute) Somnolence, daytime (Acute) Retrognathia (Acute) Other and unspecified hyperlipidemia (Acute) Essential hypertension (Acute) Past Medical History Medical History Chest pain Snoring Somnolence, daytime Retrognathia Spinal stenosis Other and unspecified hyperlipidemia Essential hypertension Family History Family History Father CVD (cardiovascular disease) Mother No problems noted. Family history of problems with anesthesia: No Surgical History Surgical History Hx of oral surgery Hx of arthroscopy of left knee Hx of tonsillectomy History of corneal transplant H/O colonoscopy History of Problems with Anesthesia: No Social History Social History Household Members: Spouse Are you a primary nurse care manager to a significant other at home: No Do you presently have visiting nurse or other home services: No Patient Tobacco Use Status: Former Tobacco user Tobacco use type: Cigarette Meds Allergies Allergy/AdvReac Type Severity Reaction Status Date / Time No Known Allergies Allergy Verified 08/19/24 15:57 [No Known Allergies*] Home Medications ?Medication ?Instructions ?Recorded ?Confirmed ?Last Taken ?Type atorvastatin 20 mg tablet 20 mg PO DAILY 09/27/20 09/04/24 09/03/24 History lisinopril 20 mg tablet 20 mg PO DAILY 09/27/20 09/04/24 09/03/24 History omeprazole 20 mg capsule,delayed 20 mg PO QAM 03/04/24 09/02/24 09/04/24 History release amlodipine 2.5 mg-benazepril 10 mg 1 cap PO DAILY 09/02/24 09/04/24 09/03/24 Hi story capsule hydrocodone 5 mg-acetaminophen 500 1 tab NEEDED PRN Pain 09/02/24 09/04/24 08/31/24 History mg tablet Exam Height,Weight and Vital Signs: Height 5 ft 7.5 in Weight 81.193 kg Assessment and Plan Assessment Anesthesia Assessment: Chart Reviewed Final Anesthetic Review Family History of Problems with Anesthesia: No History of Problems with Anesthesia: No Documented by User: Joanna Morejon MD 09/04/24 07:46 PMFSH Past Medical History Medical History Chest pain Snoring Somnolence, daytime Retrognathia Spinal stenosis Other and unspecified hyperlipidemia Essential hypertension Family History Family History Father CVD (cardiovascular disease) Mother No problems noted. Surgical History Surgical History Hx of oral surgery Hx of arthroscopy of left knee Hx of tonsillectomy History of corneal transplant H/O colonoscopy Social History Social History Household Members: Spouse Are you a primary nurse care manager to a significant other at home: No Do you presently have visiting nurse or other home services: No Patient Tobacco Use Status: Former Tobacco user Tobacco use type: Cigarette Meds Allergies Allergy/AdvReac Type Severity Reaction Status Date / Time No Known Allergies Allergy Verified 08/19/24 15:57 [No Known Allergies*] Home Medications ?Medication ?Instructions ?Recorded ?Confirmed ?Last Taken ?Type atorvastatin 20 mg tablet 20 mg PO DAILY 09/27/20 09/04/24 09/03/24 History lisinopril 20 mg tablet 20 mg PO DAILY 09/27/20 09/04/24 09/03/24 History omeprazole 20 mg capsule,delayed 20 mg PO QAM 03/04/24 09/02/24 09/04/24 History release amlodipine 2.5 mg-benazepril 10 mg 1 cap PO DAILY 09/02/24 09/04/24 09/03/24 History capsule hydrocodone 5 mg-acetaminophen 500 1 tab NEEDED PRN Pain 09/02/24 09/04/24 08/31/24 History mg tablet Exam Airway Mallampati Class: III TM Dist: >3cm Neck ROM: Full Loose/Missing/Broken Teeth: No Heart: RRR Lungs: CTA Assessment and Plan Assessment Anesthesia Assessment: Anesthesia Plan Discussed Final Anesthetic Review NPO: Yes ASA Class: II Final Preanesthetic Review: Meds/Allgs Chart Reviewed, Consent Obtained/Reviewed and Anes Risks/Benef Reviewed Patient Risk: Low Procedure Risk: Low Anesthetic Plan Anesthetic Plan: MAC: Disposition: Standard PACU
[2024-09-04 06:48] VITALS: BMI 28.2
[2024-09-04 06:54] VITALS: BP 162/91; PULSE 68; RESP 16; TEMP 36.9; O2SAT 98
[2024-09-04] MEDS: Lactated Ringers 1,000 ML 100 ML IVCONT (07:04)
--- NOTE | 2024-09-04 07:15 | PC.NURSE ---
Patient in preop. Stated that yesterday during bowel prep, he began vomiting in bathroom and passed out very briefly. Patient did not hit head, lasted about a second, was with him the whole time. Today, VS stable. Dr. Mcgrath and Dr. Morejon at bedside and made aware. No new orders at this time.
--- NOTE | 2024-09-04 07:27 | MHC.SHP ---
Pre-Procedural Eval Section A - 24 Hr Update-Section A only Date of Service: 09/04/24 Section B - Complete if H&P > 30 days Chief Complaint: Encounter for screening for malignant neoplasm of Details of Present Illness: see H&P no changes Relevant Family History (Specify if Yes): No Relevant Social History: None Present Medications: see Short Stay Collaborative assessment Medical History: No relevant PMH History of Previous Operations: No relevant previous surgery Allergies: Allergies Allergy/AdvReac Type Severity Reaction Status Date / Time No Known Allergies Allergy Verified 08/19/24 15:57 [No Known Allergies*] Review of Systems Sugical H&P ROS: Negative: Constitution, Cardiovascular, Respiratory, Neurological, Psychiatric, Hem-Onc, Allergic/Immunologic, Gastrointestinal, Genitourinary, Musculoskeletal, Integumentary, Endocrine and Eyes/Ears/Nose/Throat Exam Surgical H&P Exam: Normal: HEENT, Normal: Heart, Normal: Lungs, Normal: Extremities, Normal: Abdomen, Normal: Skin and Normal: Neurological Plan Diagnosis/Plan: Unchanged I have reviewed the history and physical and performed a pertinent physical examination on my patient. No changes have occurred unless specified. Time Spent With Patient Time: Total time managing care of this patient today ____ minutes.
[2024-09-04 08:12] VITALS: BP 121/54; PULSE 58; RESP 18; TEMP 36.1; O2SAT 96
[2024-09-04 08:27] VITALS: BP 124/74; PULSE 60; RESP 16; TEMP 36.2; O2SAT 98
--- NOTE | 2024-09-04 08:52 | P.BOP_ITS ---
Brief Operative Note Date of Service: 09/04/24 Pre-op diagnosis: screening Post-op diagnosis: same Procedure: colonoscopy Surgeon: Cruz Mcgrath MD Anesthesia: MAC Was an [employer] Maker used for this Procedure?: No Estimated blood loss (mL): 2 Pathology: other Condition: stable Disposition: PACU
--- NOTE | 2024-09-04 08:53 | OP_ITS ---
DATE OF SERVICE: 09/04/2024 SURGEON: Cruz Mcgrath MD INDICATIONS: Colon cancer screening and prior history of adenomatous colon polyps including a large polyp underneath the ileocecal valve for which short-term followup was recommended. PREOPERATIVE DIAGNOSIS: POSTOPERATIVE DIAGNOSIS: PROCEDURE PERFORMED: Colonoscopy to the terminal ileum with snare polypectomy and biopsy. ESTIMATED BLOOD LOSS: COMPLICATIONS: ANESTHESIA: Medications, monitored anesthesia care. ASSISTANTS: SPECIMENS: DESCRIPTION OF PROCEDURE: History and physical were performed. The risks and benefits of the procedure were explained to the patient and informed consent was obtained. The patient was placed in the left lateral decubitus position. A digital rectal exam was performed and was found to be normal. The Olympus pediatric video colonoscope was introduced into the rectum and advanced to the cecum. The cecum was identified by transillumination, palpation, and identification of ileocecal valve. Examination was performed. The scope was removed. He tolerated the procedure well and was returned to the recovery area in stable condition. FINDINGS: The terminal ileum was examined and appeared normal. Underneath the ileocecal valve was a less than 5 mm sessile polyp and this was removed with a cold snare, but could not be recovered for technical reasons. The second polyp in the cecum measuring less than 5 mm was removed with a biopsy forceps. In the right colon, was a 5 mm polyp, which was removed with a cold snare. In the transverse colon, was a 7 mm polyp, which was removed with a cold snare. There was mild sigmoid diverticulosis. The quality of the prep was good. Retroflexed examination showed moderate-sized internal hemorrhoids. IMPRESSION: Colon polyps. RECOMMENDATION: Follow up the biopsy results. MD KIARA Benjamin/LATRICEL / [id number]
== END 2024-09-04 09:10 | disposition home or self-care (01) ==
PROVIDERS: PCP Internal Medicine; Visit Provider Internal Medicine Gastroenterology
PROC: 0DJD8ZZ Inspection of Lower Intestinal Tract, Via Natural or Artificial Opening Endoscopic (ICD-10-PCS; CPT 45378; principal; 2024-09-04 07:30)
DX: Z12.11 Encounter for screening for malignant neoplasm of colon (principal); Z86.0101 Personal history of adenomatous and serrated colon polyps; D12.0 Benign neoplasm of cecum; D12.2 Benign neoplasm of ascending colon; D12.3 Benign neoplasm of transverse colon; K57.30 Diverticulosis of large intestine without perforation or abscess without bleeding; K64.8 Other hemorrhoids; K21.9 Gastro-esophageal reflux disease without esophagitis; M48.00 Spinal stenosis, site unspecified; I10 Essential (primary) hypertension; E78.5 Hyperlipidemia, unspecified; Z94.7 Corneal transplant status; Z79.899 Other long term (current) drug therapy; Z87.891 Personal history of nicotine dependence
CPT/HCPCS: 45385; 45380; 88305; J2003; J2704

== ENCOUNTER 2024-10-06 12:54 | Outpatient (AMB) | payer MEDICARE, SELFPAY ==
--- NOTE | 2024-10-06 12:55 | A.OFFPC_ITS ---
Vital Signs 10/06/24 13:00 Height 5 ft 6.25 in Weight 185 lb BMI 29.6 BP 160/72 H Blood Pressure Location Lt brachial Pulse 62 Pulse Source Pulse Oximeter Temp 97.3 F Pulse Oximetry (%) 99 Intake Visit Reasons: 3 month follow up Intake Note: no other issues Allergies No Known Allergies [No Known Allergies*] Allergy (Verified 10/06/24 12:56) HPI 3 month follow up HPI Details 74-year-old male presents to the office to discuss his chronic medical conditions. Patient has low back pain since 2005. He has been diagnosed with degenerative joint disease and spinal stenosis. He preferred not to take the surgical alternative. Patient uses Tylenol to alleviate his symptoms. He takes hydrocodone up to 12 pills in 3 months. Able to function and do activities of daily living. Patient is requesting a refill on Viagra. Compliant with all other medications. [facility] Medical History (Updated 10/06/24 @ 13:40 by Kalyan Long MD) Erectile dysfunction Chest pain Snoring Somnolence, daytime Retrognathia Spinal stenosis Other and unspecified hyperlipidemia Essential hypertension Surgical History Hx of oral surgery Hx of arthroscopy of left knee Hx of tonsillectomy History of corneal transplant H/O colonoscopy Family History Father CVD (cardiovascular disease) Mother No problems noted. Social History Household Members: Spouse Are you a primary child care director to a significant other at home: No Do you presently have visiting nurse or other home services: No Patient Tobacco Use Status: Former Tobacco user Tobacco use type: Cigarette Physical exam (Primary Care) Vital Signs: Last Vital Signs Temp 97.3 F 10/06/24 13:00 Pulse 62 10/06/24 13:00 BP 160/72 H 10/06/24 13:00 Pulse Ox 99 10/06/24 13:00 BMI result Body Mass Index 29.6 Tobacco/Smoking Status: Tobacco use Status Patient Tobacco Use Status Former Tobacco user 10/06/24 12:59 Tobacco use type Cigarette 10/06/24 12:59 Const General: cooperative and healthy appearing Nutritional Appearance: well nourished Orientation/consciousness: patient oriented x3 Limitations: no limitations HENMT Head: Yes normal to inspection Eyes General: appearance normal, both eyes and all related structures Neck Neck: Yes normal visual inspection Chest Chest palpation & inspection: normal palpation of entire chest wall Resp Effort & Inspection: normal respiratory effort Neuro General: patient oriented x3 Coding Level of Care Code New Pt Level 4 (96063) Complex EM visit Add On G2211 Diagnoses Essential hypertension I10 Erectile dysfunction N52.9 Spinal stenosis M48.00 Assessment & Plan Assessment & Plan (1) Essential hypertension: Code(s): I10 - Essential (primary) hypertension Category: Medical Plan: Blood pressure is slightly elevated. Continue medications at same dosage. Blood work has been ordered. Will call with the results. (2) Erectile dysfunction: Code(s): N52.9 - Male erectile dysfunction, unspecified Category: Medical Plan: Viagra prescription ordered. (3) Spinal stenosis: Code(s): M48.00 - Spinal stenosis, site unspecified Category: Medical Plan: Patient has chronic lower back pain due to spinal stenosis. He controls his symptoms with a combination of hydrocodone and diazepam. He uses these medications very infrequently. Twelve pills of hydrocodone last him 3 months. He takes 1 diazepam a week. Continue current management. Orders: Orders Basic Metabolic Panel Today I10 - Essential (primary) hypertension Thyroid Stimulating Hormone Today I10 - Essential (primary) hypertension UA and rflx microscopic Today I10 - Essential (primary) hypertension Prostate Specific Antigen Scr Today I10 - Essential (primary) hypertension Complete Blood Count no Diff Today I10 - Essential (primary) hypertension Lipid Panel Today I10 - Essential (primary) hypertension Liver Panel Today I10 - Essential (primary) hypertension Medications: New hydrocodone-acetaminophen 5-325 mg Partial Fill upon patient request. 1 tab PO DAILY PRN 12 tabs 0RF pain
[2024-10-06 13:00] VITALS: BP 160/72; PULSE 62; TEMP 36.3; O2SAT 99; BMI 29.6
--- OUTSIDE RECORDS SUMMARY | 2024-10-06 15:42 | XMS_ITS ---
Author Organization Karel Rodriguez DO, FACP Address [address] [place] [phone] Care Team Providers Care Lining Cementer Name Role Phone Karel Rodriguez Primary Care Provider REASON FOR VISIT 3 month f/u Encounters Encounter Location Date Provider Diagnosis Karel Rodriguez DO, FACP [address] [place] [phone] 10/06/2024 Karel Rodriguez PLAN OF TREATMENT No Information
--- OUTSIDE RECORDS SUMMARY | 2024-10-06 15:42 | XMS_ITS ---
Author Organization Karel Rodriguez DO, FACP Address [address] [place] [address] [place] [phone] Care Team Providers Care Stretch Machine Operator Name Role Phone Karel Rodrgiuez Primary Care Provider [phone] ALLERGIES No Known Allergies REASON FOR REFERRAL [...] Location Date Provider Diagnosis Karel Rodriguez DO, [address] [phone] 07/07/2024 Karel Rodriguez Essential hypertensi on I10 [...] General Examination GENERAL APPEARANCE: in no ac [place] distress, well developed, well nourished HEAD: normocephalic, [...]
--- OUTSIDE RECORDS SUMMARY | 2024-10-06 15:42 | XMS_ITS ---
Author Organization Karel Rodriguez DO [facility] Address [address] [place] [phone] Care Team Providers Care Irrigator Overhead Name Role Phone Michael Karel Primary Care [...] Location Date Provider Diagnosis Karel Rodriguez DO, [address] [phone] 05/19/2024 Karel Rodriguez Spinal stenosis of lumbar [...]
== END 2024-10-06 13:27 | disposition home or self-care (01) ==
LOC: HO.HMCSH 12:54
PROVIDERS: PCP Internal Medicine; Visit Provider Internal Medicine
DX: I10 Essential (primary) hypertension (principal); N52.9 Male erectile dysfunction, unspecified; M48.00 Spinal stenosis, site unspecified

== ENCOUNTER → 2024-10-06 12:54 | Outpatient (BNVA) | payer MEDICARE, SELFPAY | PROVIDERS: PCP Internal Medicine; Visit Provider Internal Medicine | DX: I10 Essential (primary) hypertension (principal); M48.00 Spinal stenosis, site unspecified; N52.9 Male erectile dysfunction, unspecified | CPT/HCPCS: 99202 ==

== ENCOUNTER 2024-10-09 07:12 | Outpatient (REF) | payer MEDICARE, SELFPAY ==
--- OUTSIDE RECORDS SUMMARY | 2024-10-09 07:14 | XMS_ITS ---
Author Organization Karel Rodriguez DO, FACP Address [address] [place] [address] [place] [phone] Care Team Providers Care Dragger Out Name Role Phone Karel Rodriguez Primary Care [...] Location Date Provider Diagnosis Karel Rodriguez DO, [address] [phone] 07/07/2024 Karel Rodriguez Essential hypertensi on I10 [...] General Examination GENERAL APPEARANCE: in no ac [place] distress, well developed, well nourished HEAD: normocephalic, [...]
--- OUTSIDE RECORDS SUMMARY | 2024-10-09 07:14 | XMS_ITS ---
Author Organization [facility] Address [address] [place] [address] Care Team Providers Care Public Relations Director Name Role Phone Michael (RETIRED) Karel COWAN Primary Care Provid er Unavailable Cruz Mcgrath Jr Unavailable REASON FOR VISIT colon polyp Encounters Encounter Location Date Provider Diagnosis [facility] [address] [place], [place] [phone] 09/04/2024 Cruz Mcgrath Jr Adenoma of colon D12.6 ASSESSMENTS Encounter Date Diagnosis Assessment Notes Treatment Notes Treatment Clinical Notes 09/04/2024 Adenoma of colon (ICD-10 - D12.6) PLAN OF TREATMENT No Information
--- OUTSIDE RECORDS SUMMARY | 2024-10-09 07:14 | XMS_ITS ---
Author Organization [facility] Address [address] [place] [address] Care Team Providers Care Clean Up Helper Banquet Name Role Phone Michael (RETIRED) Karel COWAN Primary Care Provid er Unavailable Cruz Mcgrath Jr [phone] REASON FOR VISIT pathology Encounters Encounter Location Date Provider Diagnosis [facility] [address] [place] [address] 09/10/2024 Cruz Mcgrath Jr PLAN OF TREATMENT No Information
--- OUTSIDE RECORDS SUMMARY | 2024-10-09 07:15 | XMS_ITS ---
Author Organization Karel Rodriguez DO, FACP Address [address] [place] [phone] Care Team Providers Care Electrical Test Technician Name Role Phone Karel Rodriguez Primary Care Provider REASON FOR VISIT 3 month f/u Encounters Encounter Location Date Provider Diagnosis Karel Rodriguez DO, FACP [address] [place] [phone] 10/06/2024 Karel Rodriguez PLAN OF TREATMENT No Information
--- OUTSIDE RECORDS SUMMARY | 2024-10-09 07:15 | XMS_ITS ---
Author Organization [facility] Address [address] [place] [phone] Care Team Providers Care Template Maker Name Role Phone Michael (RETIRED) Karel COWAN Primary Care Provid er Unavailable Cruz Mcgrath Jr Unavailable ALLERGIES No Known [...] unspecified part of colon (D12.6) Active confirmed [id number] VITAL SIGNS Blood pressure systolic 00 mm Hg 07/16/20 24 Blood pressure diastolic 00 mm Hg 024 Height 67.5 in 07/16/2024 Weight 179 lbs 07/16/2024 BMI 27.62 kg/m2 07/16/2024 Encounters Encounter Location Date Provider Diagnosis [facility] [address] [place] [address] 07/16/2024 Cruz Mcgrath Jr Adenomatous polyp of [...]
--- OUTSIDE RECORDS SUMMARY | 2024-10-09 07:15 | XMS_ITS | Patient Health Record ---
Author Organization [facility] Address [address] [place] [address] Care Team Providers Care Embedded Systems Software Developer Name Role Phone Michael (RETIRED) Karel COWAN Primary Care Provid er Unavailable Alcides Fonseca Cruz Unavailable ALLERGIES No Known Allergies RESULTS Component Value Reference Range Notes Pathology Reviewed date:03/11/2024 08:24:35 AM Interpretation: Performing Lab:[facility], [address] [place] [phone] Notes/Report: Pathology Reviewed date:09/10/2024 10:27:52 AM Interpretation: Performing Lab:[facility], [address] [place] [phone] Notes/Report: REASON FOR REFERRAL No Information MEDICATIONS [...] Problem Colon cancer screening (Z12.11) Active confirmed 047723598 Problem Personal history of colonic polyps (Z86.010) Active confirmed History of polyp of colon (situation) (266015966) Problem 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 (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) use of non-steroidal anti-inflammatories (NSAID) (Z79.1) Active confirmed 456489217 Problem Encounter for other preprocedural examination (Z01.818) Active confirmed 989681839 Problem Gastroesophageal reflux disease without esophagitis (K21.9) Active confirmed 690894025 Problem Adenomatous polyp of colon, unspecified part of colon (D12.6) Active confirmed 230204502 VITAL SIGNS Temperature 99.3 degrees Fahrenheit 01/29/2024 Blood pressure diastolic 00 mm Hg 07/16/2024 Height 67.5 in 07/16/2024 Blood pressure systolic 00 mm Hg 07/16/2024 Weight 179 lbs 07/16/2024 BMI 27.62 kg/m2 07/16/2024 Encounters Encounter Location Date Provider Diagnosis [facility] [address] [place], [place] [phone] 03/06/2024 Cruz Mcgrath Jr Colon cancer screening Z12.11 ; Personal history of colonic polyps Z86.010 and Colon polyps K63.5 [facility] [address] [place], [place] [phone] 09/04/2024 Cruz Mcgrath Jr Adenoma of colon D12.6 [facility] [address] [place] [phone] 01/29/2024 Cruz Mcgrath Jr Colon cancer screening Z12.11 and Gastroesophageal reflux disease without esophagitis K21.9 [facility] [address] [place] [phone] 07/16/2024 Cruz Mcgrath Jr Adenomatous polyp of colon, unspecified part of colon D12.6 and Gastroesophageal reflux disease without esophagitis K21.9 [facility] [address] [place] [address] 03/11/2024 Cruz Mcgrath Jr [facility] [address] [place] [phone] 09/10/2024 Cruz Mcgrath Jr ASSESSMENTS Encounter Date Diagnosis Assessment Notes Treatment Notes Treatment Clinical Notes 03/06/2024 Colon cancer screeni ng (ICD-10 - Z12.11) 03/06/2024 Personal history of colonic polyps (ICD-10 - Z86.010) 09/04/2024 Adenoma of colon (ICD-10 - D12.6) 01/29/2024 Colon cancer screeni ng (ICD-10 - Z12.11) 01/29/2024 Gastroesophageal ref lux disease without esophagitis (ICD-10 - K21.9) 07/16/2024 Gastroesophageal ref lux disease without esophagitis (ICD-10 - K21.9) 07/16/2024 Adenomatous polyp of colon, unspecified part of colon (ICD-10 - D12.6) 03/06/2024 Colon polyps (ICD-10 - K63.5) PLAN OF TREATMENT Future Test Test Name Order Date COLONOSCOPY 07/03/2013 COLONOSCOPY 10/23/2018 COLONOSCOPY 01/29/2024 COLONOSCOPY 07/16/2024 Insurance Providers Payer Name Payer Address Payer Phone Subscriber Number Group Number Insured Name Patient Relationship to Insured Coverage Start Date Coverage End Date MEDICARE OF [place] [address] [place] [address] [id number] DANYELL GARRISON Self - patient is the insured [employer] ATT[employer] CLAIMS [address] [place] [address] [id number] DANYELL GARRISON Self - patient is the insured MEDICAL (GENERAL) HISTORY Medical History History ICD Code Spinal stenosis Hyperlipidemia Hypertension Colonoscopy 03/04, multiple a denomas, large adenoma under his ileocecal valve, 6-12 months followup Chest pain 07/30, negative nuclear stres s test Surgical History Surgery Date(Month/Year) corneal transplant [phone] tonsillectomy left knee arthroscopy Dental extraction Hospitalization History Reason Date(Month/Year)
[2024-10-09 10:30] LABS: Hematocrit 43.2 % (42.0-52.0); Hemoglobin 14.8 g/dl (14.0-18.0); Mean Corpuscular HGB Conc 34.3 g/dl (31.0-36.0); Mean Corpuscular Hemoglobin 30.5 pg (27.0-33.0); Mean Corpuscular Volume 89.1 fL (80.0-98.0); Mean Platelet Volume 10.4 fL (9.4-12.4); Platelet Count 162 X10*3/uL (160-400); Red Blood Count 4.85 X10*6/uL (4.60-5.80); Red Cell Distribution Width 12.5 % (11.0-16.0); White Blood Count 4.8 X10*3/uL (4.8-10.8)
[2024-10-09 10:35] LABS: Appearance Urine Clear; Color Urine Yellow; Glucose Urine UA Negative (Negative); Leukocyte Esterase Urine Negative (Negative); Nitrite Urine Negative (Negative); Specific Gravity - Urine 1.015 (1.005-1.025); Urine Blood Negative (Negative); Urine Ketones Negative (Negative); Urine Protein Negative (Neg-Trace)
[2024-10-09 10:50] LABS: Alanine Aminotransferase 17 U/L (0-40); Alkaline Phosphatase 55 U/L (39-117); Anion Gap 9 (12-20); Aspartate Amino Transferase 23 U/L (5-37); Bilirubin Direct 0.2 mg/dL (0.0-0.5); Bilirubin Total 0.8 mg/dL (0.0-1.0); Blood Urea Nitrogen 17 mg/dL (9-16); Calcium 9.2 mg/dL (8.4-10.2); Carbon Dioxide 26 mmol/L (22-29); Chloride 110 mmol/L (96-108); Cholesterol 157 mg/dL (<200); Estimated Glomerular Filt Rate > 60; Glucose Random 89 mg/dL (60-115); HDL Cholesterol 56 mg/dL (>40); LDL Cholesterol Calculated 82 mg/dL (<100); Potassium 3.8 mmol/L (3.3-5.1); Sodium 141 mmol/L (135-145); Total Protein 6.9 g/dL (6.5-8.0); Triglycerides 95 mg/dL (<150)
[2024-10-09 10:59] LABS: Prostate Specific Antigen Scr 1.96 ng/mL (<0.05-4.0)
[2024-10-09 11:06] LABS: Thyroid Stimulating Hormone 2.95 uIU/mL (0.32-4.0)
== END 2024-10-09 07:13 | disposition home or self-care (01) ==
LOC: HO.HMGCLDS 07:12
PROVIDERS: PCP Internal Medicine; Visit Provider Internal Medicine
DX: I10 Essential (primary) hypertension (principal); Z12.5 Encounter for screening for malignant neoplasm of prostate
CPT/HCPCS: 36415; 80048; 80061; 80076; 81003; 84153; 84443; 85027

== ENCOUNTER 2025-04-13 08:15 | Outpatient (AMB) | payer MEDICARE, SELFPAY ==
[2025-04-13 08:21] VITALS: BP 158/64; PULSE 60; TEMP 36.4; O2SAT 98; BMI 28.8
--- NOTE | 2025-04-13 08:21 | MHC.PC.OV ---
Vital Signs 04/13/25 08:21 Height 5 ft 6.25 in Weight 180 lb 0.4 oz BMI 28.8 BP 158/64 H Blood Pressure Location Rt brachial Pulse 60 Pulse Source Pulse Oximeter Temp 97.5 F Pulse Oximetry (%) 98 Intake Visit Reasons: Follow up Intake Note: Back pain Allergies No Known Allergies (No Known Allergies*) Allergy (Verified 04/13/25 08:24) Medication List - Last Reconciled 04/13/25 by Kalyan Long MD amlodipine 10 mg PO DAILY atorvastatin 20 mg PO DAILY diazepam 5 mg PO BEDTIME PRN hydrocodone-acetaminophen 5-325 mg 1 tab PO DAILY PRN lisinopril 20 mg PO DAILY omeprazole 20 mg PO QAM sildenafil (Viagra) 50 mg PO DAILY PRN PFSH Medical History Erectile dysfunction Chest pain Snoring Somnolence, daytime Retrognathia Spinal stenosis Other and unspecified hyperlipidemia Essential hypertension Surgical History Hx of oral surgery Hx of arthroscopy of left knee Hx of tonsillectomy History of corneal transplant H/O colonoscopy (~09/04/24) Family History Father CVD (cardiovascular disease) Mother No problems noted. Social History Household Members: Spouse Are you a primary continuum of care manager to a significant other at home: No Do you presently have visiting nurse or other home services: No Patient Tobacco Use Status: Former Tobacco user Tobacco use type: Cigarette Questionnaire PHQ-9 Over the last 2 weeks, how often have you been bothered by any of the following problems? 1. Little interest or pleasure in doing things: not at all 2. Feeling down, depressed, or hopeless: not at all 3. Trouble falling or staying asleep, or sleeping too much: not at all 4. Feeling tired or having little energy: not at all 5. Poor appetite or overeating: not at all 6. Feeling bad about yourself - or that you are a failure or have let yourself or your family down: not at all 7. Trouble concentrating on things, such as reading the newspaper or watching television: not at all 8. Moving or speaking so slowly that other people could have noticed. Or the opposite - being so fidgety or restless that you have been moving around a lot more than usual: not at all 9. Thoughts that you would be better off or of hurting yourself in some way: not at all Total score: 0 Source: Developed by Drs. Karel Johnson, Miladis Corcoran, Antonio De La Vega and colleagues, with an educational joes from [employer]. Thrive Questionnaire Date Thrive assessed: 04/13/25 I am a: Patient What is your living situation today?: I have a steady place to live Within the past 12 months, did the food you bought not last and you didn't have the money to get more?: Never true Within the past 12 months, did you worry whether your food would run out before you got money to buy more?: Never true Do you have trouble paying for medicines?: No Do you have trouble getting transportation to medical appointments?: No Do you have trouble paying your heating and electricity bill?: No Do you have trouble taking care of your child, family member or friend?: No Do you have trouble with day-to-day activities such as bathing, preparing meals, shopping, managing finances, etc.?: No Are you currently unemployed and looking for a job?: No Are you interested in more education?: No THRIVE Score: 0 AUDIT C Alcohol Use Questionnaire (AUDIT-C) 1. How often do you have a drink containing alcohol?: Monthly or less 2. How many drinks containing alcohol do you have on a typical day when you are drinking?: 1 or 2 3. How often do you have six or more drinks on one occasion?: Never Total Score: 1 SHERRI-7 AMB Questionnaire SHERRI-7 Date SHERRI - 7 assessed: 04/13/25 Feeling nervous, anxious, or on edge: 0 = Not at all Not being able to stop or control worryin = Not at all Worrying too much about different things: 0 = Not at all Trouble relaxin = Not at all Being so restless that it is hard to sit still: 0 = Not at all Becoming easily annoyed or irritable: 0 = Not at all Feeling afraid as if something awful might happen: 0 = Not at all Total SHERRI-7 score (0-4 normal; 5-9 mild; 10-14 moderate; 15-21 severe): 0 Source: Developed by Drs. Karel Johnson, Miladis Corcoran, Antonio De La Vega and colleagues, with an educational jose from [employer]. Physical exam (Primary Care) Vital Signs: Last Vital Signs Temp 97.5 F 04/13/25 08:21 Pulse 60 04/13/25 08:21 BP 158/64 H 04/13/25 08:21 Pulse Ox 98 04/13/25 08:21 BMI result Body Mass Index 28.8 Tobacco/Smoking Status: Tobacco use Status Patient Tobacco Use Status Former Tobacco user 04/13/25 08:28 Tobacco use type Cigarette 04/13/25 08:28 PHQ-9: PHQ-9 Score PHQ-9: Total score 0 04/13/25 08:28 Thrive Assessment: Date of Thrive Assessment Date Thrive assessed 04/13/25 04/13/25 08:28 Coding Level of Care Code Est Pt Level 4 (75121) Complex EM visit Add On G2211 Diagnoses Essential hypertension I10 Erectile dysfunction N52.9 Spinal stenosis M48.00 Assessment & Plan Assessment & Plan (1) Essential hypertension: Code(s): I10 - Essential (primary) hypertension Category: Medical Plan: BP is elevated. Continue lisinopril and amlodipine at same dosage. To record BP at home (2) Erectile dysfunction: Code(s): N52.9 - Male erectile dysfunction, unspecified Category: Medical Plan: Continue Viagra as requested. (3) Spinal stenosis: Code(s): M48.00 - Spinal stenosis, site unspecified Category: Medical Plan: Condition is stable on intermittent use of hydrocodone and diazepam Plan History of Present Illness - The patient is a 75-year-old male presenting with medication management and follow-up for chronic conditions. - Spinal stenosis: The condition is stable, but the patient experiences back pain, managed with hydrocodone and diazepam. - Hypertension: Controlled with amlodipine and lisinopril, with no reported issues. - Hyperlipidemia: Managed with a statin, with cholesterol levels well-controlled as per recent labs. - Erectile dysfunction: Managed with occasional use of Viagra, with a refill requested. - Preventative care: Colonoscopy was performed in August and is up to date, with the next due in three years. Social History - The patient is retired since December and spends time working around the house and swimming in an above-ground pool. - He has two dogs and takes them for walks every morning. Review of Systems - Musculoskeletal: Reports back pain associated with spinal stenosis. - Cardiovascular: Denies issues with blood pressure control. - Dermatological: Reports easy bruising and thinning skin. Physical Exam General: Cooperative and healthy appearing Nutritional Appearance: Well nourished Orientation/consciousness: Patient oriented x3 Limitations: No limitations Head: Normal to inspection General: Appearance normal, both eyes and all related structures Neck: Normal visual inspection Chest: Normal palpation of entire chest wall Respiratory: No abnormalities noted during examination. ormal respiratory effort Neurology: Patient oriented x3. Results - Labs: Cholesterol levels well-controlled as per September blood work. - Preventative care: Colonoscopy performed in August, up to date. Plan 1. Spinal Stenosis - Continue hydrocodone and diazepam for symptom management. - Monitor symptoms and adjust treatment as necessary. 2. Essential Hypertension - Continue amlodipine and lisinopril. - Regular blood pressure monitoring. 3. Hyperlipidemia - Continue statin therapy. - Re-evaluate lipid profile at next follow-up. 4. Erectile Dysfunction - Refill Viagra prescription. - Discuss symptom changes at next visit. 5. Preventative Care - Colonoscopy up to date; next due in three years. - Continue routine screenings. Discussion Notes During the visit, we discussed the management of Mr. Cabrera's chronic conditions, including spinal stenosis, hypertension, hyperlipidemia, and erectile dysfunction. We agreed to continue the current medication regimen for these conditions, as they are effectively managed. Mr. Cabrera's recent lab results and colonoscopy were reviewed, confirming that his cholesterol levels are well-controlled and his colonoscopy is up to date. We also addressed the need for medication refills and scheduled a follow-up visit in six months to reassess his condition and adjust treatment as necessary. Patient Instructions - Continue taking all prescribed medications as directed. - Monitor blood pressure regularly and report any significant changes. - Schedule the next colonoscopy in three years. - Follow up in six months for reassessment. Medications: Refilled amlodipine 10 mg PO DAILY 90 tabs 1RF atorvastatin 20 mg PO DAILY 90 tabs 1RF lisinopril 20 mg PO DAILY 90 tabs 1RF sildenafil (Viagra) administer 30 minutes to 4 hours before activity 50 mg PO DAILY PRN 7 tabs 0RF sexual activity diazepam 5 mg PO BEDTIME PRN 30 tabs 0RF Anxiety hydrocodone-acetaminophen 5-325 mg Partial Fill upon patient request. 1 tab PO DAILY PRN 12 tabs 0RF pain omeprazole 20 mg PO QAM 90 caps 1RF
== END 2025-04-13 08:55 | disposition home or self-care (01) ==
LOC: HO.HMCSH 08:15
PROVIDERS: PCP Internal Medicine; Visit Provider Internal Medicine
DX: I10 Essential (primary) hypertension (principal); N52.9 Male erectile dysfunction, unspecified; M48.00 Spinal stenosis, site unspecified

== ENCOUNTER → 2025-04-13 08:15 | Outpatient (BNVA) | payer MEDICARE, SELFPAY | PROVIDERS: PCP Internal Medicine; Visit Provider Internal Medicine | DX: I10 Essential (primary) hypertension (principal); N52.9 Male erectile dysfunction, unspecified; M48.00 Spinal stenosis, site unspecified | CPT/HCPCS: 99212 ==

== ENCOUNTER 2025-07-05 10:34 | Outpatient (AMB) | payer MEDICARE, SELFPAY ==
[2025-07-05 10:36] VITALS: BP 140/66; PULSE 66; RESP 16; TEMP 36.4; O2SAT 99; BMI 29.2
--- NOTE | 2025-07-05 10:36 | MHC.PC.OV ---
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 Required: No Accompanied by: Self / Same As Patient Allergies No Known Allergies (No Known Allergies*) Allergy (Verified 07/05/25 10:37) Tobacco use date assessed: 07/05/25 Fall risk assessment: No Falls in past year Last assessed Fall Risk: 07/05/25 Dental Screening Dental Screen Date: 07/05/25 Did you have a dental visit in the last 12 months?: Yes Did you have a dental problem in the last 6 months where you did not have access to dental care?: No Was dental information given to patient?: Patient has dentist HPI HPI Comments History of Present Illness Details History of Present Illness - The patient is a 75 year old individual presenting with a lump on the right jaw. - The patient first noticed the lump on the right side of the jaw approximately three weeks ago. - The lump was painful on the first day of onset but has not been painful since. - The patient perceives the lump as spreading. - The patient denies pain with swallowing. - The patient also reports a sometimes painful issue on one hand. - The patient takes amlodipine and lisinopril daily for hypertension, a statin daily, and omeprazole daily for stomach issues. - The patient does not take sleep medication every day. - A sleep study was previously ordered, but the patient did not follow through with it after the initial consultation. - The patient???s last prostate check was with Dr. Dawson. 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 - Activity Level: The patient reports being active, including a recent five-mile hike and deer hunting. - Substance Use: The patient declined the flu shot. Results - Labs: Blood work was performed in the early part of the year. No results were discussed. FORMERLY [facility] Medical History Erectile dysfunction Chest pain Snoring Somnolence, daytime Retrognathia Spinal stenosis Other and unspecified hyperlipidemia Essential hypertension Surgical History Hx of oral surgery Hx of arthroscopy of left knee Hx of tonsillectomy History of corneal transplant H/O colonoscopy (~09/04/24) Family History Father CVD (cardiovascular disease) Mother No problems noted. Social History (Updated 07/05/25 @ 10:45 by LESLIE Lakhani) Household Members: Spouse Housing: House Are you a primary medical care evaluation specialist to a significant other at home: No Do you presently have visiting nurse or other home services: No Alcohol intake: current Alcohol intake frequency: a few times a week Patient Tobacco Use Status: Former Tobacco user Tobacco use type: Cigarette service: No Current occupational status: retired Cognitive needs: No Hearing needs: Yes (b/l hearing aids) Vision needs: Yes (reading glasses) Questionnaire PHQ-9 Over the last 2 weeks, how often have you been bothered by any of the following problems? 1. Little interest or pleasure in doing things: not at all 2. Feeling down, depressed, or hopeless: not at all 3. Trouble falling or staying asleep, or sleeping too much: not at all 4. Feeling tired or having little energy: not at all 5. Poor appetite or overeating: not at all 6. Feeling bad about yourself - or that you are a failure or have let yourself or your family down: not at all 7. Trouble concentrating on things, such as reading the newspaper or watching television: not at all 8. Moving or speaking so slowly that other people could have noticed. Or the opposite - being so fidgety or restless that you have been moving around a lot more than usual: not at all 9. Thoughts that you would be better off or of hurting yourself in some way: not at all Total score: 0 Source: Developed by Drs. Karel Johnson, Miladis Corcoran, Antonio De La Vega and colleagues, with an educational jose from [employer]. Thrive Questionnaire Date Thrive assessed: 04/13/25 I am a: Patient What is your living situation today?: I have a steady place to live Within the past 12 months, did the food you bought not last and you didn't have the money to get more?: Never true Within the past 12 months, did you worry whether your food would run out before you got money to buy more?: Never true Do you have trouble paying for medicines?: No Do you have trouble getting transportation to medical appointments?: No Do you have trouble paying your heating and electricity bill?: No Do you have trouble taking care of your child, family member or friend?: No Do you have trouble with day-to-day activities such as bathing, preparing meals, shopping, managing finances, etc.?: No Are you currently unemployed and looking for a job?: No Are you interested in more education?: No THRIVE Score: 0 AUDIT C Alcohol Use Questionnaire (AUDIT-C) 1. How often do you have a drink containing alcohol?: 2-4 times a month 2. How many drinks containing alcohol do you have on a typical day when you are drinking?: 1 or 2 3. How often do you have six or more drinks on one occasion?: Never Total Score: 2 SHERRI-7 AMB Questionnaire SHERRI-7 Date SHERRI - 7 assessed: 04/13/25 Feeling nervous, anxious, or on edge: 0 = Not at all Not being able to stop or control worryin = Not at all Worrying too much about different things: 0 = Not at all Trouble relaxin = Not at all Being so restless that it is hard to sit still: 0 = Not at all Becoming easily annoyed or irritable: 0 = Not at all Feeling afraid as if something awful might happen: 0 = Not at all Total SHERRI-7 score (0-4 normal; 5-9 mild; 10-14 moderate; 15-21 severe): 0 Source: Developed by Drs. Karel Johnson, Miladis Corcoran, Antonio De La Vega and colleagues, with an educational jose from [employer]. Review of Systems Narrative Review of Systems - General: Denies pain elsewhere. - HEENT: Reports a lump on the right side of the jaw for three weeks. - GI: Denies odynophagia. - Musculoskeletal/Skin: Reports an intermittent painful lesion on the hand. Physical exam (Primary Care) Vital Signs: Last Vital Signs Temp 97.6 F 07/05/25 10:36 Pulse 66 07/05/25 10:36 Resp 16 07/05/25 10:36 BP 140/66 H 07/05/25 10:36 Pulse Ox 99 07/05/25 10:36 Oxygen Delivery Method Room Air 07/05/25 10:36 BMI result Body Mass Index 29.2 Tobacco/Smoking Status: Tobacco use Status Tobacco use date assessed 07/05/25 07/05/25 10:43 Patient Tobacco Use Status Former Tobacco user 07/05/25 10:45 Tobacco use type Cigarette 07/05/25 10:45 PHQ-9: PHQ-9 Score PHQ-9: Total score 0 07/05/25 10:43 Thrive Assessment: Date of Thrive Assessment Date Thrive assessed 04/13/25 07/05/25 10:43 Narrative Physical Exam General: Appearance normal, both eyes and all related structures Nutritional Appearance: Well nourished Orientation/consciousness: Patient oriented x3 Limitations: No limitations Head: Lump on the right side of the jaw, suspected swollen parotid gland Neck: Normal visual inspection Chest: Normal palpation of entire chest wall Respiratory: Normal respiratory effort Neurology: Patient oriented x3 Office Procedures Flu Questionnaire Does the patient have a severe egg allergy?: No Does the patient have severe life threatening allergies?: No Does the patient have a fever or illness today?: No Has the patient ever had Guillain-Smyer Syndrome?: No Has the patient ever had any past reaction to a flu shot?: No Immunizations Fluarix [id number] (PF) 45 mcg (15 mcg x 3)/0.5 mL IM syringe Performing Provider: Kalyan Long MD [facility] [place] [facility] Documented (not given) by: LESLIE Lakhani on 07/05/25 10:44 Reason Not Given: Patient Refused Coding Level of Care Code Complex visit Add On G2211 Diagnoses Essential hypertension I10 Parotid gland enlargement K11.1 Assessment & Plan Assessment & Plan (1) Essential hypertension: Code(s): I10 - Essential (primary) hypertension Category: Medical Plan: See below (2) Parotid gland enlargement: Code(s): K11.1 - Hypertrophy of salivary gland Plan: History of Present Illness - The patient is a 75 year old individual presenting with a lump on the right jaw. - The patient first noticed the lump on the right side of the jaw approximately three weeks ago. - The lump was painful on the first day of onset but has not been painful since. - The patient perceives the lump as spreading. - The patient denies pain with swallowing. - The patient also reports a sometimes painful issue on one hand. - The patient takes amlodipine and lisinopril daily for hypertension, a statin daily, and omeprazole daily for stomach issues. - The patient does not take sleep medication every day. - A sleep study was previously ordered, but the patient did not follow through with it after the initial consultation. - The patient?s last prostate check was with Dr. Dawson. 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 - Activity Level: The patient reports being active, including a recent five-mile hike and deer hunting. - Substance Use: The patient declined the flu shot. Review of Systems - General: Denies pain elsewhere. - HEENT: Reports a lump on the right side of the jaw for three weeks. - GI: Denies odynophagia. - Musculoskeletal/Skin: Reports an intermittent painful lesion on the hand. Physical Exam General: Appearance normal, both eyes and all related structures Nutritional Appearance: Well nourished Orientation/consciousness: Patient oriented x3 Limitations: No limitations Head: Lump on the right side of the jaw, suspected swollen parotid gland Neck: Normal visual inspection Chest: Normal palpation of entire chest wall Respiratory: Normal respiratory effort Neurology: Patient oriented x3 Results - Labs: Blood work was performed in the early part of the year. No results were discussed. Plan - An ultrasound of the right parotid gland will be ordered to investigate the swelling. - Repeat blood work will be ordered. - The patient was advised to call the office if there is no communication regarding the ultrasound appointment within one week. - The patient declined the influenza vaccine. - The patient will continue the current medication regimen, which includes amlodipine, a statin, lisinopril, and omeprazole. Discussion Notes I informed the patient that in my clinical opinion, the lump on the jaw is a swollen salivary gland, specifically the parotid. I explained that this can sometimes be caused by a stone blocking saliva secretion, and the first step to determine the cause is an ultrasound of the area. I explained that after the ultrasound, we will determine if the condition may resolve on its own or if the stone needs to be removed. The patient's medications were reviewed. I ordered an ultrasound and repeat blood work. I instructed the patient to call us back in one week if they do not hear from us about the ultrasound. We discussed the flu and COVID-19 vaccines. The patient indicated that all their questions were answered. Patient Instructions - We are ordering an ultrasound of your jaw to look at the swollen gland. - If you do not hear from our office or the imaging center about your ultrasound appointment in one week, please call us. - We will also have you get some blood work done. - Continue taking your daily medications as prescribed for blood pressure, cholesterol, and stomach protection. - We recommend you get the flu and COVID-19 vaccines. Plan Plan - An ultrasound of the right parotid gland will be ordered to investigate the swelling. - Repeat blood work will be ordered. - The patient was advised to call the office if there is no communication regarding the ultrasound appointment within one week. - The patient declined the influenza vaccine. - The patient will continue the current medication regimen, which includes amlodipine, a statin, lisinopril, and omeprazole. Discussion Notes I informed the patient that in my clinical opinion, the lump on the jaw is a swollen salivary gland, specifically the parotid. I explained that this can sometimes be caused by a stone blocking saliva secretion, and the first step to determine the cause is an ultrasound of the area. I explained that after the ultrasound, we will determine if the condition may resolve on its own or if the stone needs to be removed. The patient's medications were reviewed. I ordered an ultrasound and repeat blood work. I instructed the patient to call us back in one week if they do not hear from us about the ultrasound. We discussed the flu and COVID-19 vaccines. The patient indicated that all their questions were answered. Patient Instructions - We are ordering an ultrasound of your jaw to look at the swollen gland. - If you do not hear from our office or the imaging center about your ultrasound appointment in one week, please call us. - We will also have you get some blood work done. - Continue taking your daily medications as prescribed for blood pressure, cholesterol, and stomach protection. - We recommend you get the flu and COVID-19 vaccines. Orders: Orders Complete Blood Count no Diff Today I10 - Essential (primary) hypertension Lipid Panel Today I10 - Essential (primary) hypertension Liver Panel Today I10 - Essential (primary) hypertension Thyroid Stimulating Hormone Today I10 - Essential (primary) hypertension Prostate Specific Antigen Scr Today I10 - Essential (primary) hypertension Hepatitis B Surface Antibody Today I10 - Essential (primary) hypertension Influenza [id number] Immunization Today Z23 - Encounter for immunization Basic Metabolic Panel Today I10 - Essential (primary) hypertension UA and rflx microscopic Today I10 - Essential (primary) hypertension Erythrocyte Sedimentation Rate Today I10 - Essential (primary) hypertension US soft tiss head and/or neck Today K11.1 - Hypertrophy of salivary gland
== END 2025-07-05 10:55 | disposition home or self-care (01) ==
LOC: HO.HMCSH 10:34
PROVIDERS: PCP Internal Medicine; Visit Provider Internal Medicine
DX: I10 Essential (primary) hypertension (principal); K11.1 Hypertrophy of salivary gland; Z23 Encounter for immunization

== ENCOUNTER → 2025-07-05 10:34 | Outpatient (BNVA) | payer MEDICARE, SELFPAY | PROVIDERS: PCP Internal Medicine; Visit Provider Internal Medicine | DX: K11.1 Hypertrophy of salivary gland (principal); I10 Essential (primary) hypertension; Z13.31 Encounter for screening for depression | CPT/HCPCS: 90471; 96127; 99212 ==

== ENCOUNTER 2025-07-13 07:31 | Outpatient (REF) | payer MEDICARE, SELFPAY ==
[2025-07-13 10:11] LABS: Appearance Urine Clear; Glucose Urine UA Negative (Negative); PH 6.5 (5.0-9.0); Specific Gravity - Urine 1.020 (1.005-1.025)
[2025-07-13 10:26] LABS: Hematocrit 43.1 % (42.0-52.0); Hemoglobin 14.7 g/dl (14.0-18.0); Mean Corpuscular HGB Conc 34.1 g/dl (31.0-36.0); Mean Corpuscular Hemoglobin 30.6 pg (27.0-33.0); Mean Corpuscular Volume 89.8 fL (80.0-98.0); NRBC Abs Auto 0.000 X10*3/uL (0.0-0.012); NRBC Pct Auto 0.0 /100WBC (0.0-0.2); Platelet Count 195 X10*3/uL (160-400); Red Blood Count 4.80 X10*6/uL (4.60-5.80); White Blood Count 4.2 X10*3/uL (4.8-10.8)
[2025-07-13 10:56] LABS: Alanine Aminotransferase 19 U/L (0-40); Anion Gap 12 (12-20); Aspartate Amino Transferase 25 U/L (5-37); Blood Urea Nitrogen 19 mg/dL (9-16); Calcium 9.3 mg/dL (8.4-10.2); Carbon Dioxide 30 mmol/L (22-29); Chloride 107 mmol/L (96-108); Estimated Glomerular Filt Rate > 60; Potassium 4.1 mmol/L (3.3-5.1); Sodium 145 mmol/L (135-145); Total Protein 6.8 g/dL (6.5-8.0)
[2025-07-13 10:57] LABS: Albumin Level 4.4 g/dL (3.5-5.0); Alkaline Phosphatase 60 U/L (39-117); Cholesterol 170 mg/dL (<200); HDL Cholesterol 56 mg/dL (>40); Thyroid Stimulating Hormone 2.51 uIU/mL (0.32-4.0); Triglycerides 90 mg/dL (<150)
[2025-07-13 11:04] LABS: HBS Num1 0.00 mIU/mL (0-7.99); ~Hepatitis B Surface Antibody NONREACTIVE (Nonreactive)
== END 2025-07-13 07:32 | disposition home or self-care (01) ==
LOC: HO.HMGCLDS 07:31
PROVIDERS: PCP Internal Medicine; Visit Provider Internal Medicine
DX: Z12.5 Encounter for screening for malignant neoplasm of prostate (principal); I10 Essential (primary) hypertension
CPT/HCPCS: 36415; 80048; 80061; 80076; 81003; 84153; 84443; 85027; 85652; 86706

== ENCOUNTER 2025-07-20 10:39 | Outpatient (REF) | payer MEDICARE, SELFPAY ==
--- NOTE | ~2025-07-20 | US_ITS ---
CLINICAL HISTORY: K11.1 - Hypertrophy of salivary gland rt parotid swelling --- Additional Notes or Special Instructions: Right side of neck, parotid swelling (clinically) ULTRASOUND SOFT TISSUE HEAD AND NECK Comparison: None Findings: Neither parotid gland was measured. In the right periparotid region, there are 2 lymph nodes that measure 1.9 x 0.9 x 2.0 cm and 2.5 x 1.4 x 2.2 cm. There is abnormal morphology. The fatty jean claude are replaced. No measurable fluid collection. Impression: 1. Borderline enlarged and mildly enlarged periparotid adenopathy. Follow-up CT soft tissue neck with contrast is recommended for better characterization and to evaluate for parotid gland size bilaterally. This document has been electronically signed by: Georgette Bose DO on 07/21/2025 09:45:09
== END 2025-07-20 10:40 | disposition home or self-care (01) ==
LOC: HO.HMGCX 10:39
PROVIDERS: PCP Internal Medicine; Visit Provider Internal Medicine
DX: K11.1 Hypertrophy of salivary gland (principal)
CPT/HCPCS: 76536

== ENCOUNTER → 2025-07-20 11:05 | Outpatient (BNV) | payer MEDICARE, SELFPAY | PROVIDERS: PCP Internal Medicine; Visit Provider Radiology Diagnostic Radiology | DX: K11.1 Hypertrophy of salivary gland (principal); R59.0 Localized enlarged lymph nodes | CPT/HCPCS: 76536 ==